=== PATIENT | female | born 1930 | race Caucasian/White ===

== ENCOUNTER → 2016-11-27 | Outpatient (CLI) | payer MEDICARE, OTHER ==
[~2016-11-27] MED LIST: AMOX-367 PO; CELE200C PO; CEPH-368 PO; FENT-58 SUBD; FENT1PAT77 TD; FLUC200T PO; FURO-92 PO; HYDR-3144 PO; HYDR1TAB12 PO; POTA20TA14 PO
== END | disposition home or self-care (01) ==
LOC: ROC 13:52
PROVIDERS: ATTEND Radiology Radiation Oncology
DX: C20 Malignant neoplasm of rectum (principal); C79.89 Secondary malignant neoplasm of other specified sites
CPT/HCPCS: G0463

== ENCOUNTER → 2017-02-19 | Outpatient (CLI) | payer MEDICARE | END | disposition home or self-care (01) | LOC: CVU 07:30 | PROVIDERS: ATTEND Internal Medicine Cardiovascular Disease | DX: S71.102D Unspecified open wound, left thigh, subsequent encounter (principal); I87.2 Venous insufficiency (chronic) (peripheral); X58.XXXD Exposure to other specified factors, subsequent encounter | CPT/HCPCS: 93970 ==

== ENCOUNTER → 2017-05-21 | Outpatient (CLI) | payer MEDICARE ==
[~2017-05-21] MED LIST changes: -HYDR-3144 PO; +HYDR-3245 PO
== END | disposition home or self-care (01) ==
LOC: ROC 11:01
PROVIDERS: ATTEND Radiology Radiation Oncology
DX: C76.3 Malignant neoplasm of pelvis (principal)
CPT/HCPCS: G0463

== ENCOUNTER → 2017-05-29 | Outpatient (CLI) | payer MEDICARE ==
[~2017-05-29] MED LIST changes: +GADOBUTROL 7.5 MMOL/7.5 ML PFS ONE
== END | disposition home or self-care (01) ==
LOC: CFH 09:09
PROVIDERS: ATTEND Radiology Radiation Oncology
DX: C79.51 Secondary malignant neoplasm of bone (principal); C20 Malignant neoplasm of rectum; I10 Essential (primary) hypertension; Z98.1 Arthrodesis status; Z98.890 Other specified postprocedural states
CPT/HCPCS: 72197; 82565; A9585

== ENCOUNTER → 2017-06-04 | Outpatient (CLI) | payer MEDICARE ==
[~2017-06-04] MED LIST changes: -GADOBUTROL 7.5 MMOL/7.5 ML PFS ONE
== END | disposition home or self-care (01) ==
LOC: ROC 09:25
PROVIDERS: ATTEND Radiology Radiation Oncology
DX: C76.3 Malignant neoplasm of pelvis (principal)
CPT/HCPCS: G0463

== ENCOUNTER → 2017-06-08 | Outpatient (CLI) | payer MEDICARE | END | disposition home or self-care (01) | LOC: WOUND 13:56 | PROVIDERS: ATTEND Internal Medicine Cardiovascular Disease | DX: I83.892 Varicose veins of left lower extremity with other complications (principal); I10 Essential (primary) hypertension | CPT/HCPCS: 36475 ==

== ENCOUNTER → 2017-06-11 | Outpatient (CLI) | payer MEDICARE | END | disposition home or self-care (01) | LOC: CVU 06:43 | PROVIDERS: ATTEND Internal Medicine Cardiovascular Disease | DX: I87.2 Venous insufficiency (chronic) (peripheral) (principal); Z98.890 Other specified postprocedural states | CPT/HCPCS: 93971 ==

== ENCOUNTER → 2017-11-16 | Outpatient (CLI) | payer MEDICARE | LOC: ROC 10:50 | PROVIDERS: ATTEND Radiology Radiation Oncology | DX: Z08 Encounter for follow-up examination after completed treatment for malignant neoplasm (principal); Z85.048 Personal history of other malignant neoplasm of rectum, rectosigmoid junction, and anus; Z98.890 Other specified postprocedural states | CPT/HCPCS: 99212; G0463 ==

== ENCOUNTER 2019-03-28 07:07 | Inpatient (IN) | payer MEDICARE ==
[~2019-03-28] VITALS: Ht 167.6 cm; Wt 73.5 kg
[2019-04-05 14:32] VITALS: BP 133/69
== END 2019-04-05 16:05 | DRG 480 ==
LOC: ED 09:03 → EDIP 09:37 → 4NOR 10:51 → 5SO 03-29 18:16 → 4NOR 04-02 15:51 → 4EST 04-04 16:15 → 4NOR 04-04 16:16
PROVIDERS: ADMIT Internal Medicine; ATTEND Internal Medicine
PROC: 0T9B70Z Drainage of Bladder with Drainage Device, Via Natural or Artificial Opening (ICD-10-PCS; 2019-03-28)
PROC: 0QH636Z Insertion of Intramedullary Internal Fixation Device into Right Upper Femur, Percutaneous Approach (ICD-10-PCS; principal; 2019-03-29)
DX: S72.142A Displaced intertrochanteric fracture of left femur, initial encounter for closed fracture (principal); N17.0 Acute kidney failure with tubular necrosis; F11.20 Opioid dependence, uncomplicated; D62 Acute posthemorrhagic anemia; K52.1 Toxic gastroenteritis and colitis; Z96.641 Presence of right artificial hip joint; S72.22XA Displaced subtrochanteric fracture of left femur, initial encounter for closed fracture; N30.90 Cystitis, unspecified without hematuria; I48.0 Paroxysmal atrial fibrillation; T50.8X5A Adverse effect of diagnostic agents, initial encounter; E87.6 Hypokalemia; I10 Essential (primary) hypertension; W01.0XXA Fall on same level from slipping, tripping and stumbling without subsequent striking against object, initial encounter; T36.95XA Adverse effect of unspecified systemic antibiotic, initial encounter; G89.29 Other chronic pain; B96.89 Other specified bacterial agents as the cause of diseases classified elsewhere; E04.2 Nontoxic multinodular goiter; Z85.038 Personal history of other malignant neoplasm of large intestine; Z87.440 Personal history of urinary (tract) infections; Y93.89 Activity, other specified; Y92.89 Other specified places as the place of occurrence of the external cause; Y99.8 Other external cause status; Z88.5 Allergy status to narcotic agent; Z88.8 Allergy status to other drugs, medicaments and biological substances
CPT/HCPCS: 36415; 71045; 71275; 72110; 76000; 80048; 80053; 81001; 82962; 83540; 83550; 83735; 84439; 84443; 84481; 84484; 85025; 85610; 85730; 86850; 86900; 87077; 87086; 87186; 87324; 93005; C1713; G0378; J0690; J0696; J1100; J1170; J1885; J2405; J2543; J2704; J3010; Q9967; J7030; J7040

== ENCOUNTER 2019-07-05 10:54 | Emergency (ER) | payer MEDICARE ==
[~2019-07-05] VITALS: Ht 167.6 cm; Wt 65.1 kg
[~2019-07-05 10:54] MED LIST changes: +ACET325T26 PO; +ACID1TAB7 PO; +ALEN10TA7 PO; +CALC1TAB68 PO; +CHOL400C11 PO; +FERR-51 PO; +HYDR-3241 PO; -HYDR1TAB12 PO; +HYDR1TAB13 PO; +LISI2.5T PO; +[UNRECOGNIZED DRUG - OTHER]
[2019-07-05] MEDS ORDERED: SODIUM CHLORIDE 0.9% 1,000 ML IV ONE (11:24)
[2019-07-05] MEDS ORDERED: VANCOMYCIN PER PHARMACY MC ONE (11:30)
[2019-07-05] MEDS ORDERED: PIPERACILLIN/TAZO/PMX 4.5GM 100 ML IVPB ONE (11:30)
[2019-07-05] MEDS ORDERED: SODIUM CHLORIDE 0.9% 1,000ML IVBOLUS ONE (11:30)
[2019-07-05] MEDS ORDERED: SODIUM CHLORIDE FLUSH 10ML SYR IVF ONE (11:30)
[2019-07-05 11:45] VITALS: BP 94/44
--- NOTE | 2019-07-05 11:46 | NUR ---
pt to ed for left lateral foot wound x2 and great toe infection (pt states healing) of unknown cause and unknown length of time. pt connected to monitors. tachy 110s, mild hypotension 90s/40s, all other vss. Dr. Martinez to bs for assessment. orders received. iv established and labs and 1 set bc drawn. xr complete. r and d lab technician to bs to compelte draw. awatiing results and meds from pharmacy.
[2019-07-05 12:00] LABS: BASOPHILS # (AUTO) 0.01 x10^3/uL (0-0.1); BASOPHILS % (AUTO) 0 % (0-1); EOSINOPHILS # (AUTO) 0.42 x10^3/uL (0-0.4); EOSINOPHILS % (AUTO) 5 % (1-7); LYMPHOCYTES # (AUTO) 0.47 x10^3/uL (1-3.4); LYMPHOCYTES % (AUTO) 5 % (22-44); MD NO; MEAN CORPUSCULAR HEMOGLOBIN 25.2 pg (27.0-34.8); MEAN CORPUSCULAR HGB CONC 31.2 g/dL (32.4-35.8); MEAN CORPUSCULAR VOLUME 80.7 fL (80-100); MEAN PLATELET VOLUME 8.1 fL (7.4-10.4); MONOCYTES % (AUTO) 4 % (2-9); NEUTROPHILS # (AUTO) 7.77 x10^3/uL (1.8-6.8); NEUTROPHILS % (AUTO) 86 % (42-75); PLATELET COUNT 422 x10^3/uL (130-400); RED BLOOD COUNT 4.22 x10^6/uL (3.82-5.3); RED CELL DISTRIBUTION WIDTH 19.8 % (9.6-15.2)
[2019-07-05] MEDS ORDERED: VANCOMYCIN 1,300 MG in SODIUM CHLORIDE 0.9% 250 ML IV ONE (12:00)
[2019-07-05 12:12] LABS: ALANINE AMINOTRANSFERASE 13 U/L (12-78); ALBUMIN 2.7 g/dL (3.4-5.0); ANION GAP 6 mmol/L (5-15); CALCIUM 8.6 mg/dL (8.5-10.1); CHLORIDE 111 mmol/L (98-107); CREATININE 1.13 mg/dL (0.55-1.02)
[2019-07-05 12:14] LABS: ALKALINE PHOSPHATASE 127 U/L (45-117); BILIRUBIN,TOTAL 0.3 mg/dL (0.2-1.0)
--- NOTE | 2019-07-05 12:19 | NUR ---
pt refusing abx, ivf and admit at this time. Dr. Martinez aware and will speak with patients.
--- NOTE | 2019-07-05 12:20 | NUR ---
Dr. Martinez to bs.
[2019-07-05 12:26] LABS: INTERNATIONAL NORMALIZED RATIO 0.95 (0.93-1.1)
--- NOTE | 2019-07-05 12:56 | NUR ---
after speaking with Dr. Martinez, pt will be dc. plan for wound care and wound consult. will hold all ivf and iv abx.
--- NOTE | 2019-07-05 13:14 | NUR ---
pt excorted to dc desk wtih all belongings. pt refused wheelchair.
== END 2019-07-05 13:16 | disposition home or self-care (01) ==
LOC: ED 12:18
DX: L89.523 Pressure ulcer of left ankle, stage 3 (principal); L89.623 Pressure ulcer of left heel, stage 3; L89.893 Pressure ulcer of other site, stage 3; L03.032 Cellulitis of left toe; M19.90 Unspecified osteoarthritis, unspecified site; Z90.710 Acquired absence of both cervix and uterus; Z85.038 Personal history of other malignant neoplasm of large intestine
CPT/HCPCS: 36415; 71045; 80053; 83605; 84145; 85025; 85610; 85730; 87040; 93005; 99284

== ENCOUNTER 2019-07-06 13:27 | Outpatient (CLI) | payer MEDICARE | END 2019-07-06 23:59 | disposition home or self-care (01) | LOC: WOUND 13:27 | PROVIDERS: ATTEND Internal Medicine | DX: L89.620 Pressure ulcer of left heel, unstageable (principal); L89.523 Pressure ulcer of left ankle, stage 3; L89.891 Pressure ulcer of other site, stage 1; S81.811A Laceration without foreign body, right lower leg, initial encounter; M86.072 Acute hematogenous osteomyelitis, left ankle and foot; M19.90 Unspecified osteoarthritis, unspecified site; Z87.891 Personal history of nicotine dependence; Z85.038 Personal history of other malignant neoplasm of large intestine; Z90.710 Acquired absence of both cervix and uterus; Y93.89 Activity, other specified; Y92.89 Other specified places as the place of occurrence of the external cause; Y99.8 Other external cause status; X58.XXXA Exposure to other specified factors, initial encounter | CPT/HCPCS: 11042; 97597; G0463 ==

== ENCOUNTER 2019-07-29 13:56 | Outpatient (CLI) | payer MEDICARE ==
[~2019-07-29 13:56] MED LIST changes: +FERR325T16 PO; +PIPE3.375 IV
== END 2019-07-29 23:59 | disposition home or self-care (01) ==
LOC: WOUND 13:56
PROVIDERS: ATTEND Family Medicine
DX: L89.524 Pressure ulcer of left ankle, stage 4 (principal); L89.624 Pressure ulcer of left heel, stage 4; L89.223 Pressure ulcer of left hip, stage 3; L89.891 Pressure ulcer of other site, stage 1; L89.159 Pressure ulcer of sacral region, unspecified stage; S81.811D Laceration without foreign body, right lower leg, subsequent encounter; M86.072 Acute hematogenous osteomyelitis, left ankle and foot; D63.1 Anemia in chronic kidney disease; I12.9 Hypertensive chronic kidney disease with stage 1 through stage 4 chronic kidney disease, or unspecified chronic kidney disease; N18.3 Chronic kidney disease, stage 3 (moderate); M86.8X6 Other osteomyelitis, lower leg; E46 Unspecified protein-calorie malnutrition; I25.2 Old myocardial infarction; G89.29 Other chronic pain; I48.0 Paroxysmal atrial fibrillation; M19.90 Unspecified osteoarthritis, unspecified site; F11.20 Opioid dependence, uncomplicated; Z88.5 Allergy status to narcotic agent; Z90.710 Acquired absence of both cervix and uterus; Z85.038 Personal history of other malignant neoplasm of large intestine; Z85.830 Personal history of malignant neoplasm of bone; Z90.49 Acquired absence of other specified parts of digestive tract; Z87.891 Personal history of nicotine dependence; Z79.899 Other long term (current) drug therapy; X58.XXXD Exposure to other specified factors, subsequent encounter
CPT/HCPCS: 11042; 97597

== ENCOUNTER 2019-08-05 13:18 | Outpatient (CLI) | payer MEDICARE | END 2019-08-05 23:59 | disposition home or self-care (01) | LOC: WOUND 13:18 | PROVIDERS: ATTEND Family Medicine | DX: L89.524 Pressure ulcer of left ankle, stage 4 (principal); L89.223 Pressure ulcer of left hip, stage 3; L89.624 Pressure ulcer of left heel, stage 4; L89.159 Pressure ulcer of sacral region, unspecified stage; M86.072 Acute hematogenous osteomyelitis, left ankle and foot; L89.891 Pressure ulcer of other site, stage 1; S81.811D Laceration without foreign body, right lower leg, subsequent encounter; D63.1 Anemia in chronic kidney disease; I12.9 Hypertensive chronic kidney disease with stage 1 through stage 4 chronic kidney disease, or unspecified chronic kidney disease; N18.3 Chronic kidney disease, stage 3 (moderate); M86.8X6 Other osteomyelitis, lower leg; E46 Unspecified protein-calorie malnutrition; I25.2 Old myocardial infarction; G89.29 Other chronic pain; I48.0 Paroxysmal atrial fibrillation; M19.90 Unspecified osteoarthritis, unspecified site; F11.20 Opioid dependence, uncomplicated; Z88.5 Allergy status to narcotic agent; Z90.710 Acquired absence of both cervix and uterus; Z85.038 Personal history of other malignant neoplasm of large intestine; Z85.830 Personal history of malignant neoplasm of bone; Z90.49 Acquired absence of other specified parts of digestive tract; Z87.891 Personal history of nicotine dependence; Z79.899 Other long term (current) drug therapy; X58.XXXD Exposure to other specified factors, subsequent encounter | CPT/HCPCS: 11042; 11043; 97597 ==

== ENCOUNTER 2019-08-18 11:30 | Inpatient (IN) | payer MEDICARE ==
[~2019-08-18] VITALS: Ht 162.6 cm; Wt 86.0 kg
--- NOTE | 2019-08-18 12:35 | NUR ---
PT HAS CO OF LEFT HEEL PAIN AND LEFT HIP PAIN. PT IS POOR HISTORIAN. PT STATES SHE HAD AN INFECTION, RECEIVED PICC LINE AND HAD IT REMOVED YESTERDAY. PT STATES HOME HEALTH IS UNABLE TO TAKE CARE OF HER, HELPS OUT AND LIVES WITH SON. PT SKIN IS EXTREMELY EXCORIATED IN WALTER AREA, UNDER SKIN FOLDS AND BREAST WITH FECES AND OLD UNDWEAR. PT HAS DIARRHEA, RECENT ABX USE. MD AT BEDSIDE ASSESSING PEDAL PULSES. LEFT PEDAL PULSE ABSENT W DOPPLER. RIGHT PEDAL PULSE PRESENT. LEFT HEAL HAS LARGE ULCER WITH OLD DRESSING REMOVED. VS STABLE. DENIES PAIN.
[2019-08-18 12:54] LABS: BASOPHILS % (AUTO) 0 % (0-1); EOSINOPHILS % (AUTO) 1 % (1-7); LYMPHOCYTES % (AUTO) 7 % (22-44); MD NO; MEAN CORPUSCULAR HEMOGLOBIN 23.7 pg (27.0-34.8); MEAN CORPUSCULAR HGB CONC 31.5 g/dL (32.4-35.8); MEAN CORPUSCULAR VOLUME 75.4 fL (80-100); MEAN PLATELET VOLUME 8.8 fL (7.4-10.4); MONOCYTES # (AUTO) 0.15 x10^3/uL (0.2-0.8); MONOCYTES % (AUTO) 2 % (2-9); NEUTROPHILS # (AUTO) 6.45 x10^3/uL (1.8-6.8); NEUTROPHILS % (AUTO) 90 % (42-75); PLATELET COUNT 206 x10^3/uL (130-400); RED BLOOD COUNT 3.21 x10^6/uL (3.82-5.3); RED CELL DISTRIBUTION WIDTH 20.3 % (9.6-15.2)
[2019-08-18 12:57] LABS: ALBUMIN 1.9 g/dL (3.4-5.0); ANION GAP 11 mmol/L (5-15); CALCIUM 8.1 mg/dL (8.5-10.1); CHLORIDE 115 mmol/L (98-107)
[2019-08-18 13:00] LABS: ALANINE AMINOTRANSFERASE 18 U/L (12-78); ALKALINE PHOSPHATASE 106 U/L (45-117); BILIRUBIN,TOTAL 0.2 mg/dL (0.2-1.0); CREATININE 1.19 mg/dL (0.55-1.02); TOTAL PROTEIN 5.4 g/dL (6.4-8.2)
--- NOTE | 2019-08-18 13:41 | NUR ---
UA AND STOOL SAMPLE COLLECTED. PT CLEANED. PT HAS SKIN TEARS FROM EXCORIATON ON BUTTOCK. ENTIRE WALTER AREA IS MACERATED, PT INCONTINENT OF BOWEL.
[2019-08-18 13:55] LABS: CULTURE INDICATED? NO; MICROSCOPIC NOT IND
--- NOTE | 2019-08-18 14:13 | NUR ---
BREAK RN: PT RESTING IN BED, EYES OPEN, NAD NOTED. PT DENIES ANY NEEDS OR CONCERNS AT THIS TIME. VITALS UPDATED, CALL LIGHT IN REACH.
[2019-08-18 15:00] LABS: CLOSTRIDIUM DIFFICILE ANTIGEN NEGATIVE; CLOSTRIDIUM DIFFICILE TOXIN NEGATIVE (Negative)
--- NOTE | 2019-08-18 15:20 | NUR ---
PT CLEANED UP, NYSTATIN POWDER APPLIED. INCONTINENT OF STOOL
[2019-08-18] MEDS ORDERED: POTASSIUM CHLORIDE 20 MEQ in LACTATED RINGERS 1,000 ML IV ONE (16:10)
--- NOTE | 2019-08-18 16:20 | NUR ---
DISCUSSED DALLIN Montana MD FOR ADMIT
--- NOTE | 2019-08-18 16:21 | NUR ---
PT TURNED AND CLEANED UP. CALAZIME CREAM APPLIED.
--- NOTE | 2019-08-18 17:34 | NUR ---
[facility] at bedside
[2019-08-18] MEDS ORDERED: PIPERACILLIN/TAZO/PMX 3.375GM 50 ML ONE (17:40)
--- NOTE | 2019-08-18 17:51 | NUR ---
MEDICATED FOR PAIN. ABX INFUSING
[2019-08-18] MEDS ORDERED: PIPERACILLIN/TAZO/PMX 3.375GM 50 ML IV SCH (18:00)
[2019-08-18] MEDS ORDERED: hydrALAzine 20 MG/ML, 1ML IVPush PRN (18:00)
[2019-08-18] MEDS ORDERED: ACETAMINOPHEN 325 MG TABLET PO PRN (18:00)
[2019-08-18 19:44] VITALS: BP 151/69
[2019-08-18 20:00] VITALS: BP 145/75
[2019-08-18] MEDS ORDERED: NYSTATIN TOPICAL POWDER 15GM TP SCH (21:00)
[2019-08-18] MEDS: LACTOBACILLUS CHEW TABLET PO SCH ×2 (21:00→21:06)
[2019-08-18] MEDS: HEPARIN 5,000 UNITS/ML, 1ML SQ SCH (21:06)
[2019-08-18] MEDS: SODIUM CHLORIDE 0.9% 1,000 ML IV SCH (21:07)
[2019-08-18] MEDS: FERROUS GLUCONATE 324 MG TABLET PO SCH (21:08)
[2019-08-19] VITALS (7 sets, daily range): BP systolic 89–156; BP diastolic 61–83
[2019-08-19] MEDS: PIPERACILLIN/TAZO/PMX 2.25GM 50 ML IVPB SCH ×4 (00:09→21:58)
[2019-08-19] MEDS: HEPARIN 5,000 UNITS/ML, 1ML SQ SCH ×4 (02:00→18:00)
[2019-08-19] MEDS: HYDROcodone/APAP 5/325 TABLET PO PRN ×2 (02:04→23:57)
[2019-08-19 04:52] LABS: ALANINE AMINOTRANSFERASE 17 U/L (12-78); ALBUMIN 1.6 g/dL (3.4-5.0); ANION GAP 10 mmol/L (5-15); CALCIUM 7.3 mg/dL (8.5-10.1); CHLORIDE 116 mmol/L (98-107); CREATININE 1.04 mg/dL (0.55-1.02)
[2019-08-19 04:54] LABS: ALKALINE PHOSPHATASE 92 U/L (45-117); BILIRUBIN,TOTAL 0.2 mg/dL (0.2-1.0); TOTAL PROTEIN 4.7 g/dL (6.4-8.2)
[2019-08-19 05:00] LABS: MEAN CORPUSCULAR HEMOGLOBIN 23.3 pg (27.0-34.8); MEAN CORPUSCULAR VOLUME 75.2 fL (80-100); MEAN PLATELET VOLUME 8.8 fL (7.4-10.4); PLATELET COUNT 167 x10^3/uL (130-400); RED BLOOD COUNT 2.86 x10^6/uL (3.82-5.3); RED CELL DISTRIBUTION WIDTH 20.3 % (9.6-15.2)
[2019-08-19 05:08] LABS: MD YES
[2019-08-19 05:11] LABS: ANISOCYTOSIS 1+; BAND#(MANUAL) 0.11 x10^3/uL; BANDS%(MANUAL) 2 % (0-7); EOS#(MANUAL) 0.42 x10^3/uL (0.0-0.4); EOS% (MANUAL) 8 % (1-7); HYPOCHROMIA 1+; LYMPH#(MANUAL) 0.32 x10^3/uL (1-3.4); LYMPHS% (MANUAL) 6 % (22-44); METAMYELOCYTES# (MANUAL) 0.05 x10^3/uL (0-0); METAMYELOCYTES% (MANUAL) 1 % (0-1); MICROCYTOSIS 1+; MONOS#(MANUAL) 0.05 x10^3/uL (0.3-2.7); MONOS% (MANUAL) 1 % (2-9); OVALOCYTES 1+; POLYCHROMASIA 1+; SEG#(MANUAL) 4.35 x10^3/uL (1.8-6.8); SEGS% (MANUAL) 82 % (42-75)
[2019-08-19 05:12] LABS: <PLATELET ESTIMATE> ADEQUATE
[2019-08-19 05:13] LABS: LARGE PLATELETS 1+
[2019-08-19] MEDS ORDERED: POTASSIUM CHLORIDE 20 MEQ TAB.ER.PRT PO ONE ×2 (07:00→16:00)
[2019-08-19] MEDS ORDERED: MAGNESIUM SULFATE PMX 2GM/50ML 50 ML IV ONE (07:00)
[2019-08-19] MEDS: SODIUM CHLORIDE 0.9% 1,000 ML IV SCH (08:53)
[2019-08-19] MEDS: FERROUS GLUCONATE 324 MG TABLET PO SCH ×2 (08:53→17:15)
[2019-08-19] MEDS: LACTOBACILLUS CHEW TABLET PO SCH ×3 (08:53→20:23)
[2019-08-19] MEDS ORDERED: LISINOPRIL 20 MG PO SCH (09:00)
[2019-08-19] MEDS ORDERED: DIPHENOXYLATE/ATROPINE TABLET PO PRN (11:30)
[2019-08-19] MEDS: POTASSIUM CHLORIDE 20 MEQ in SODIUM CHLORIDE 0.45% 1,000 ML IV SCH (13:08)
[2019-08-19] MEDS: FLUCONAZOLE 100MG/50ML 100 MG in BAG 1 EACH IV SCH (14:56)
[2019-08-19] MEDS: ONDANSETRON 2MG/ML, 2ML IVPush PRN (21:58)
[2019-08-20] MEDS ORDERED: METOCLOPRAMIDE 5 MG/ML, 2ML IVPush ONE (00:30)
[2019-08-20 01:19] VITALS: BP 145/65
[2019-08-20] MEDS: HEPARIN 5,000 UNITS/ML, 1ML SQ SCH ×6 (01:54→22:06)
[2019-08-20] MEDS: ONDANSETRON 2MG/ML, 2ML IVPush PRN (03:54)
[2019-08-20 03:57] VITALS: BP 147/82
[2019-08-20] MEDS: PIPERACILLIN/TAZO/PMX 2.25GM 50 ML IVPB SCH ×4 (04:12→22:03)
[2019-08-20 05:34] LABS: HCT (SEDRATE) 29.2 % (34.6-47.8)
[2019-08-20 05:38] LABS: ANION GAP 9 mmol/L (5-15); CALCIUM 7.9 mg/dL (8.5-10.1); CHLORIDE 115 mmol/L (98-107); CREATININE 0.99 mg/dL (0.55-1.02)
[2019-08-20 05:41] LABS: MEAN CORPUSCULAR HEMOGLOBIN 24.5 pg (27.0-34.8); MEAN CORPUSCULAR HGB CONC 31.5 g/dL (32.4-35.8); MEAN CORPUSCULAR VOLUME 77.7 fL (80-100); MEAN PLATELET VOLUME 8.9 fL (7.4-10.4); PLATELET COUNT 248 x10^3/uL (130-400); RED BLOOD COUNT 3.82 x10^6/uL (3.82-5.3); RED CELL DISTRIBUTION WIDTH 22.1 % (9.6-15.2)
[2019-08-20 06:20] LABS: MD YES
[2019-08-20 06:23] LABS: ANISOCYTOSIS 1+; BAND#(MANUAL) 0.47 x10^3/uL; BANDS%(MANUAL) 5 % (0-7); HYPOCHROMIA 1+; LYMPH#(MANUAL) 0.37 x10^3/uL (1-3.4); LYMPHS% (MANUAL) 4 % (22-44); MICROCYTOSIS 1+; MONOS#(MANUAL) 0.19 x10^3/uL (0.3-2.7); MONOS% (MANUAL) 2 % (2-9); OVALOCYTES 1+; POLYCHROMASIA 1+; SEG#(MANUAL) 8.28 x10^3/uL (1.8-6.8); SEGS% (MANUAL) 89 % (42-75)
[2019-08-20 06:24] LABS: <PLATELET ESTIMATE> ADEQUATE; <PLT MORPHOLOGY> NORMAL PLT MORPH; TEAR DROPS 1+
[2019-08-20] MEDS ORDERED: POTASSIUM CHLORIDE 20 MEQ TAB.ER.PRT PO ONE (07:00)
[2019-08-20 07:50] VITALS: BP 179/78
[2019-08-20] MEDS: FERROUS GLUCONATE 324 MG TABLET PO SCH ×2 (08:00→17:00)
[2019-08-20] MEDS: LACTOBACILLUS CHEW TABLET PO SCH ×3 (08:06→20:59)
[2019-08-20] MEDS: POTASSIUM CHLORIDE 20 MEQ in SODIUM CHLORIDE 0.45% 1,000 ML IV SCH (08:12)
[2019-08-20] MEDS ORDERED: HYDROmorphone 1 MG/ML, 1ML INJ IV PRN (08:30)
[2019-08-20] MEDS ORDERED: PROMETHAZINE 25 MG/ML, 1ML IM PRN (08:30)
[2019-08-20] MEDS ORDERED: HYDROmorphone 2 MG/ML, 1ML IV PRN (09:00)
[2019-08-20] MEDS ORDERED: cloniDINE 0.1MG PATCH TD SCH (11:30)
[2019-08-20] MEDS ORDERED: LORazepam 2 MG/ML, 1ML IVPush PRN (11:30)
[2019-08-20 12:25] VITALS: BP 135/68
[2019-08-20] MEDS: FLUCONAZOLE 100MG/50ML 100 MG in BAG 1 EACH IV SCH (16:25)
[2019-08-20] MEDS: PANTOPRAZOLE 40 MG IV IVPush SCH (17:07)
[2019-08-20 18:47] VITALS: BP 151/72
[2019-08-21] VITALS: BP 168/74
[2019-08-21] MEDS: POTASSIUM CHLORIDE 20 MEQ in SODIUM CHLORIDE 0.45% 1,000 ML IV SCH ×2 (03:25→22:00)
[2019-08-21] MEDS: PIPERACILLIN/TAZO/PMX 2.25GM 50 ML IVPB SCH ×4 (03:25→22:00)
[2019-08-21 04:57] LABS: BASOPHILS % (AUTO) 0 % (0-1); EOSINOPHILS # (AUTO) 0.05 x10^3/uL (0-0.4); EOSINOPHILS % (AUTO) 1 % (1-7); LYMPHOCYTES # (AUTO) 0.32 x10^3/uL (1-3.4); LYMPHOCYTES % (AUTO) 4 % (22-44); MD NO; MEAN CORPUSCULAR HEMOGLOBIN 23.8 pg (27.0-34.8); MEAN CORPUSCULAR HGB CONC 31.2 g/dL (32.4-35.8); MEAN CORPUSCULAR VOLUME 76.4 fL (80-100); MEAN PLATELET VOLUME 8.4 fL (7.4-10.4); MONOCYTES # (AUTO) 0.42 x10^3/uL (0.2-0.8); MONOCYTES % (AUTO) 5 % (2-9); NEUTROPHILS # (AUTO) 7.37 x10^3/uL (1.8-6.8); NEUTROPHILS % (AUTO) 90 % (42-75); PLATELET COUNT 202 x10^3/uL (130-400); RED BLOOD COUNT 3.53 x10^6/uL (3.82-5.3)
[2019-08-21 05:00] LABS: ANION GAP 8 mmol/L (5-15); CALCIUM 7.6 mg/dL (8.5-10.1); CHLORIDE 116 mmol/L (98-107)
[2019-08-21 06:51] VITALS: BP 160/81
[2019-08-21] MEDS: FERROUS GLUCONATE 324 MG TABLET PO SCH ×2 (08:00→16:21)
[2019-08-21] MEDS: LACTOBACILLUS CHEW TABLET PO SCH ×3 (08:04→21:00)
[2019-08-21] MEDS: HEPARIN 5,000 UNITS/ML, 1ML SQ SCH ×3 (10:19→23:27)
[2019-08-21] MEDS: PANTOPRAZOLE 40 MG IV IVPush SCH ×2 (10:19→21:21)
[2019-08-21] MEDS ORDERED: POTASSIUM CHLORIDE 20 MEQ in SODIUM CHLORIDE 0.45% 1,000 ML IV SCH (11:30)
[2019-08-21] MEDS: POTASSIUM CHLORIDE 40 MEQ in SODIUM CHLORIDE 0.9% 500 ML IV SCH ×2 (11:50→16:20)
[2019-08-21 13:30] VITALS: BP 155/69
[2019-08-21] MEDS: FLUCONAZOLE 100MG/50ML 100 MG in BAG 1 EACH IV SCH (15:31)
[2019-08-21 20:00] VITALS: BP 156/69
[2019-08-22 01:45] VITALS: BP 164/74
[2019-08-22] MEDS: PIPERACILLIN/TAZO/PMX 2.25GM 50 ML IVPB SCH ×4 (04:17→21:41)
[2019-08-22 05:18] LABS: MEAN CORPUSCULAR HEMOGLOBIN 24.8 pg (27.0-34.8); MEAN CORPUSCULAR HGB CONC 31.5 g/dL (32.4-35.8); MEAN CORPUSCULAR VOLUME 78.7 fL (80-100); MEAN PLATELET VOLUME 8.5 fL (7.4-10.4); PLATELET COUNT 213 x10^3/uL (130-400); RED BLOOD COUNT 3.35 x10^6/uL (3.82-5.3); RED CELL DISTRIBUTION WIDTH 23.2 % (9.6-15.2)
[2019-08-22 05:25] LABS: ALBUMIN 1.7 g/dL (3.4-5.0); ANION GAP 11 mmol/L (5-15); CALCIUM 7.7 mg/dL (8.5-10.1); CHLORIDE 115 mmol/L (98-107)
[2019-08-22 05:29] LABS: ALANINE AMINOTRANSFERASE 13 U/L (12-78); ALKALINE PHOSPHATASE 109 U/L (45-117); BILIRUBIN,TOTAL 0.4 mg/dL (0.2-1.0); CREATININE 0.82 mg/dL (0.55-1.02); TOTAL PROTEIN 5.2 g/dL (6.4-8.2)
[2019-08-22 06:03] LABS: BASOPHILS % (AUTO) 0 % (0-1); EOSINOPHILS # (AUTO) 0.23 x10^3/uL (0-0.4); EOSINOPHILS % (AUTO) 3 % (1-7); LYMPHOCYTES # (AUTO) 0.43 x10^3/uL (1-3.4); LYMPHOCYTES % (AUTO) 5 % (22-44); MD SCAN; MONOCYTES % (AUTO) 7 % (2-9); NEUTROPHILS # (AUTO) 7.41 x10^3/uL (1.8-6.8); NEUTROPHILS % (AUTO) 86 % (42-75)
[2019-08-22 07:08] VITALS: BP 177/72
[2019-08-22] MEDS: HEPARIN 5,000 UNITS/ML, 1ML SQ SCH ×3 (08:00→23:52)
[2019-08-22] MEDS: FERROUS GLUCONATE 324 MG TABLET PO SCH ×2 (10:19→16:21)
[2019-08-22] MEDS: PANTOPRAZOLE 40 MG IV IVPush SCH ×2 (10:19→21:41)
[2019-08-22] MEDS: LACTOBACILLUS CHEW TABLET PO SCH ×3 (10:19→21:32)
[2019-08-22 13:40] VITALS: BP 162/75
[2019-08-22] MEDS: FLUCONAZOLE 100MG/50ML 100 MG in BAG 1 EACH IV SCH (16:20)
[2019-08-22] MEDS: POTASSIUM CHLORIDE 20 MEQ in SODIUM CHLORIDE 0.45% 1,000 ML IV SCH (16:51)
[2019-08-22 18:28] VITALS: BP 157/79
[2019-08-22] MEDS ORDERED: MAGNESIUM SULFATE 1 GM in SODIUM CHLORIDE 0.9% 50 ML IV ONE (19:00)
[2019-08-22] MEDS ORDERED: POTASSIUM PHOSPHATE 44 MEQ in SODIUM CHLORIDE 0.9% 500 ML IV ONE (19:00)
[2019-08-23 00:54] VITALS: BP 163/73
[2019-08-23] MEDS: PIPERACILLIN/TAZO/PMX 2.25GM 50 ML IVPB SCH ×3 (04:08→21:35)
[2019-08-23 05:33] LABS: MEAN CORPUSCULAR HGB CONC 31.1 g/dL (32.4-35.8); MEAN CORPUSCULAR VOLUME 77.2 fL (80-100); MEAN PLATELET VOLUME 8.4 fL (7.4-10.4); PLATELET COUNT 234 x10^3/uL (130-400); RED BLOOD COUNT 3.56 x10^6/uL (3.82-5.3); RED CELL DISTRIBUTION WIDTH 22.8 % (9.6-15.2)
[2019-08-23 05:41] LABS: ANION GAP 13 mmol/L (5-15); CALCIUM 7.9 mg/dL (8.5-10.1); CHLORIDE 112 mmol/L (98-107)
[2019-08-23 05:42] LABS: CREATININE 0.69 mg/dL (0.55-1.02)
[2019-08-23 06:12] LABS: BASOPHILS # (AUTO) 0.03 x10^3/uL (0-0.1); BASOPHILS % (AUTO) 0 % (0-1); EOSINOPHILS # (AUTO) 0.18 x10^3/uL (0-0.4); EOSINOPHILS % (AUTO) 2 % (1-7); LYMPHOCYTES # (AUTO) 0.54 x10^3/uL (1-3.4); LYMPHOCYTES % (AUTO) 7 % (22-44); MD SCAN; MONOCYTES % (AUTO) 10 % (2-9); NEUTROPHILS # (AUTO) 6.54 x10^3/uL (1.8-6.8); NEUTROPHILS % (AUTO) 81 % (42-75)
[2019-08-23] MEDS: POTASSIUM CHLORIDE 20 MEQ in SODIUM CHLORIDE 0.45% 1,000 ML IV SCH (07:00)
[2019-08-23] MEDS: HEPARIN 5,000 UNITS/ML, 1ML SQ SCH ×2 (08:00→16:00)
[2019-08-23] MEDS ORDERED: ONDANSETRON 2MG/ML, 2ML IV PRN (09:00)
[2019-08-23] MEDS ORDERED: FENTANYL PF 100 MCG/2ML IV PRN (09:00)
[2019-08-23] MEDS ORDERED: METOPROLOL 1 MG/ML, 5ML IV PRN (09:00)
[2019-08-23 09:04] VITALS: BP 99/58
[2019-08-23] MEDS ORDERED: PROPOFOL 10 MG/ML, 50ML ONE (09:18)
[2019-08-23 11:00] VITALS: BP 160/82
[2019-08-23 11:15] VITALS: BP 170/79
[2019-08-23 12:51] VITALS: BP 159/76
[2019-08-23] MEDS: PANTOPRAZOLE 40 MG IV IVPush SCH ×2 (15:37→21:35)
[2019-08-23] MEDS: LACTOBACILLUS CHEW TABLET PO SCH ×3 (15:38→21:36)
[2019-08-23] MEDS: FERROUS GLUCONATE 324 MG TABLET PO SCH ×2 (15:38→17:00)
[2019-08-23] MEDS: FLUCONAZOLE 100MG/50ML 100 MG in BAG 1 EACH IV SCH (16:36)
[2019-08-23 18:37] VITALS: BP 143/67
[2019-08-23] MEDS ORDERED: FLUCONAZOLE 200 MG/100 ML 100 ML IV SCH (22:30)
[2019-08-23] MEDS: SODIUM CHLORIDE 0.9% 1,000 ML IV SCH (22:42)
[2019-08-24 00:42] VITALS: BP 159/83
[2019-08-24] MEDS: PIPERACILLIN/TAZO/PMX 2.25GM 50 ML IVPB SCH ×4 (03:30→22:44)
[2019-08-24] MEDS: FLUCONAZOLE 200 MG/100 ML 100 ML IV SCH (04:00)
[2019-08-24 05:10] LABS: ALBUMIN 1.7 g/dL (3.4-5.0); ANION GAP 7 mmol/L (5-15); CALCIUM 7.4 mg/dL (8.5-10.1); CHLORIDE 112 mmol/L (98-107)
[2019-08-24 05:11] LABS: MD YES; MEAN CORPUSCULAR HEMOGLOBIN 24.1 pg (27.0-34.8); MEAN CORPUSCULAR VOLUME 77.8 fL (80-100); MEAN PLATELET VOLUME 8.6 fL (7.4-10.4); PLATELET COUNT 238 x10^3/uL (130-400); RED BLOOD COUNT 3.25 x10^6/uL (3.82-5.3); RED CELL DISTRIBUTION WIDTH 22.7 % (9.6-15.2)
[2019-08-24 05:13] LABS: CREATININE 0.71 mg/dL (0.55-1.02)
[2019-08-24 05:14] LABS: ALANINE AMINOTRANSFERASE 16 U/L (12-78); ALKALINE PHOSPHATASE 107 U/L (45-117); BILIRUBIN,TOTAL 0.3 mg/dL (0.2-1.0); TOTAL PROTEIN 4.9 g/dL (6.4-8.2)
[2019-08-24 06:00] LABS: BAND#(MANUAL) 0.09 x10^3/uL; BANDS%(MANUAL) 1 % (0-7); EOS#(MANUAL) 0.34 x10^3/uL (0.0-0.4); EOS% (MANUAL) 4 % (1-7); LYMPH#(MANUAL) 0.34 x10^3/uL (1-3.4); LYMPHS% (MANUAL) 4 % (22-44); MONOS#(MANUAL) 0.34 x10^3/uL (0.3-2.7); MONOS% (MANUAL) 4 % (2-9); MYELOCYTES# (MANUAL) 0.17 x10^3/uL (0-0); MYELOCYTES% (MANUAL) 2 % (0-0); SEG#(MANUAL) 7.23 x10^3/uL (1.8-6.8); SEGS% (MANUAL) 85 % (42-75)
[2019-08-24 06:01] LABS: <PLATELET ESTIMATE> ADEQUATE; <PLT MORPHOLOGY> NORMAL PLT MORPH; ANISOCYTOSIS 1+; MICROCYTOSIS 1+
[2019-08-24 07:24] VITALS: BP 166/76
[2019-08-24] MEDS: HEPARIN 5,000 UNITS/ML, 1ML SQ SCH ×4 (08:00→22:15)
[2019-08-24] MEDS: PANTOPRAZOLE 40 MG IV IVPush SCH ×2 (09:25→21:18)
[2019-08-24] MEDS: FERROUS GLUCONATE 324 MG TABLET PO SCH ×2 (09:25→16:44)
[2019-08-24] MEDS: LACTOBACILLUS CHEW TABLET PO SCH ×3 (09:25→21:18)
[2019-08-24] MEDS: SODIUM CHLORIDE 0.9% 1,000 ML IV SCH (09:25)
[2019-08-24 13:15] VITALS: BP 173/68
[2019-08-24 16:49] VITALS: BP 149/80
[2019-08-24 19:04] VITALS: BP 147/72
[2019-08-24] MEDS ORDERED: MAGNESIUM SULFATE PMX 2GM/50ML 50 ML IV ONE (21:30)
[2019-08-24] MEDS ORDERED: POTASSIUM PHOSPHATE 44 MEQ in SODIUM CHLORIDE 0.9% 500 ML IV ONE (21:30)
[2019-08-25] MEDS: SODIUM CHLORIDE 0.9% 1,000 ML IV SCH ×2 (01:43→15:10)
[2019-08-25 01:57] VITALS: BP 131/63
[2019-08-25] MEDS: PIPERACILLIN/TAZO/PMX 2.25GM 50 ML IVPB SCH ×4 (05:00→23:16)
[2019-08-25] MEDS: FLUCONAZOLE 200 MG/100 ML 100 ML IV SCH (05:41)
[2019-08-25 06:33] LABS: MEAN CORPUSCULAR HGB CONC 31.3 g/dL (32.4-35.8); MEAN CORPUSCULAR VOLUME 76.8 fL (80-100); MEAN PLATELET VOLUME 8.6 fL (7.4-10.4); PLATELET COUNT 269 x10^3/uL (130-400); RED BLOOD COUNT 3.31 x10^6/uL (3.82-5.3); RED CELL DISTRIBUTION WIDTH 22.9 % (9.6-15.2)
[2019-08-25 06:42] VITALS: BP 152/78
[2019-08-25 06:45] LABS: ALBUMIN 1.5 g/dL (3.4-5.0); ANION GAP 6 mmol/L (5-15); CALCIUM 7.5 mg/dL (8.5-10.1); CHLORIDE 113 mmol/L (98-107)
[2019-08-25 06:50] LABS: ALANINE AMINOTRANSFERASE 18 U/L (12-78); ALKALINE PHOSPHATASE 103 U/L (45-117); BILIRUBIN,TOTAL 0.4 mg/dL (0.2-1.0); CREATININE 0.72 mg/dL (0.55-1.02)
[2019-08-25 07:02] LABS: BASOPHILS % (AUTO) 0 % (0-1); EOSINOPHILS # (AUTO) 0.17 x10^3/uL (0-0.4); EOSINOPHILS % (AUTO) 2 % (1-7); LYMPHOCYTES # (AUTO) 0.52 x10^3/uL (1-3.4); LYMPHOCYTES % (AUTO) 6 % (22-44); MD MORPH REVIEW ONLY; MONOCYTES # (AUTO) 0.83 x10^3/uL (0.2-0.8); MONOCYTES % (AUTO) 9 % (2-9); NEUTROPHILS # (AUTO) 7.86 x10^3/uL (1.8-6.8); NEUTROPHILS % (AUTO) 84 % (42-75)
[2019-08-25 07:31] LABS: ANISOCYTOSIS 1+; HYPOCHROMIA 1+; MICROCYTOSIS 1+; OVALOCYTES 1+; POLYCHROMASIA 1+; TARGET CELLS 1+
[2019-08-25 07:32] LABS: <PLATELET ESTIMATE> ADEQUATE; <PLT MORPHOLOGY> NORMAL PLT MORPH
[2019-08-25] MEDS: HEPARIN 5,000 UNITS/ML, 1ML SQ SCH ×2 (08:00→16:00)
[2019-08-25] MEDS: PANTOPRAZOLE 40 MG IV IVPush SCH (10:03)
[2019-08-25] MEDS: FERROUS GLUCONATE 324 MG TABLET PO SCH ×2 (10:04→16:36)
[2019-08-25] MEDS: LACTOBACILLUS CHEW TABLET PO SCH ×3 (10:04→21:59)
[2019-08-25] MEDS ORDERED: IBUPROFEN 200 MG TABLET PO PRN (11:30)
[2019-08-25 13:23] VITALS: BP 142/73
[2019-08-25 18:38] VITALS: BP 133/75
[2019-08-25] MEDS: PANTOPROZOLE 40MG TABLET PO SCH (21:59)
[2019-08-26 00:45] VITALS: BP 160/68
[2019-08-26] MEDS: SODIUM CHLORIDE 0.9% 1,000 ML IV SCH ×2 (02:23→12:43)
[2019-08-26] MEDS: FLUCONAZOLE 200 MG/100 ML 100 ML IV SCH (04:41)
[2019-08-26] MEDS: PANTOPROZOLE 40MG TABLET PO SCH ×2 (06:00→17:20)
[2019-08-26 06:40] VITALS: BP 169/78
[2019-08-26 08:40] VITALS: BP 142/77
[2019-08-26] MEDS ORDERED: SULFAMETH./TRIMETHOPRIM DS 800MG/160MG TABLET PO SCH (09:00)
[2019-08-26] MEDS ORDERED: FLUCONAZOLE 200 MG TABLET PO SCH (09:00)
[2019-08-26] MEDS: LACTOBACILLUS CHEW TABLET PO SCH ×2 (10:16→17:20)
[2019-08-26] MEDS: FERROUS GLUCONATE 324 MG TABLET PO SCH ×2 (10:16→17:20)
[2019-08-26] MEDS: HEPARIN 5,000 UNITS/ML, 1ML SQ SCH ×3 (10:17→17:16)
[2019-08-26] MEDS ORDERED: PANT40TA5 PO (12:02)
[2019-08-26] MEDS ORDERED: Sulfameth./Trimethoprim Ds PO (12:02)
[2019-08-26] MEDS ORDERED: FLUC200T PO (12:02)
[2019-08-26] MEDS ORDERED: TRAM50TA2 PO (12:32)
[2019-08-26 13:32] VITALS: BP 156/83
== END 2019-08-26 19:00 | DRG 393 ==
LOC: ED 13:49 → EDIP 16:10 → 4NW 18:35
PROVIDERS: ADMIT Internal Medicine; ATTEND Internal Medicine
PROC: 0T9B70Z Drainage of Bladder with Drainage Device, Via Natural or Artificial Opening (ICD-10-PCS; 2019-08-18)
PROC: 0D9P70Z Drainage of Rectum with Drainage Device, Via Natural or Artificial Opening (ICD-10-PCS; 2019-08-18)
PROC: 30233N1 Transfusion of Nonautologous Red Blood Cells into Peripheral Vein, Percutaneous Approach (ICD-10-PCS; principal; 2019-08-19)
PROC: 0D9670Z Drainage of Stomach with Drainage Device, Via Natural or Artificial Opening (ICD-10-PCS; 2019-08-20)
PROC: 0D7P8ZZ Dilation of Rectum, Via Natural or Artificial Opening Endoscopic (ICD-10-PCS; 2019-08-23)
DX: K91.858 Other complications of intestinal pouch (principal); L89.323 Pressure ulcer of left buttock, stage 3; E43 Unspecified severe protein-calorie malnutrition; M86.8X6 Other osteomyelitis, lower leg; E87.2 Acidosis; K62.6 Ulcer of anus and rectum; F11.20 Opioid dependence, uncomplicated; L03.116 Cellulitis of left lower limb; K62.4 Stenosis of anus and rectum; N18.3 Chronic kidney disease, stage 3 (moderate); L97.529 Non-pressure chronic ulcer of other part of left foot with unspecified severity; B37.2 Candidiasis of skin and nail; D50.9 Iron deficiency anemia, unspecified; L89.229 Pressure ulcer of left hip, unspecified stage; I13.10 Hypertensive heart and chronic kidney disease without heart failure, with stage 1 through stage 4 chronic kidney disease, or unspecified chronic kidney disease; Z66 Do not resuscitate; R62.7 Adult failure to thrive; B95.2 Enterococcus as the cause of diseases classified elsewhere; L30.4 Erythema intertrigo; Z90.49 Acquired absence of other specified parts of digestive tract; Z90.710 Acquired absence of both cervix and uterus; Z87.440 Personal history of urinary (tract) infections; Z88.5 Allergy status to narcotic agent; Z82.49 Family history of ischemic heart disease and other diseases of the circulatory system; Z87.891 Personal history of nicotine dependence; Z87.19 Personal history of other diseases of the digestive system; Z68.32 Body mass index [BMI] 32.0-32.9, adult; Z79.899 Other long term (current) drug therapy; R15.9 Full incontinence of feces; Y83.2 Surgical operation with anastomosis, bypass or graft as the cause of abnormal reaction of the patient, or of later complication, without mention of misadventure at the time of the procedure; Y92.9 Unspecified place or not applicable
CPT/HCPCS: 36415; 72190; 74018; 74022; 74176; 80048; 80053; 81003; 83690; 83735; 84100; 84132; 85014; 85018; 85025; 85651; 86850; 86900; 86923; 87046; 87070; 87077; 87106; 87186; 87205; 87324; 87427; 93970; G0378; J1170; J1644; J2405; J2543; J2550; J2704; J3475; J3480; C1725; C9113; J0360; J1450; J2060; J2765; J7030; J7040; P9016

== ENCOUNTER 2019-09-20 16:49 | Inpatient (IN) | payer MEDICARE ==
[~2019-09-20] VITALS: Ht 162.6 cm; Wt 74.2 kg
[~2019-09-20 16:49] MED LIST changes: +ALEN10TA10 PO; -ALEN10TA7 PO; +PANT40TA5 PO; +Sulfameth./Trimethoprim Ds PO; +TRAM50TA2 PO
--- NOTE | 2019-09-20 17:08 | NUR ---
PT RICK MATHIS FROM [facility] FOR RE-EVAL ON NON-HEALING FOOT WOUND TO LEFT ANKLE. PT ARRIVED IN AFIB 100-130S. PT VERY FRUSTRATED SHE STATES "I HAVE NOTHING WRONG WITH ME, LET ME GO HOME." PT AAO X 4, HX AFIB AND TAKES ELIQUIS. PT DRESSED IN GOWN AND ATTACHED TO MONITOR. PER EMS, PT REFUSED IV EN ROUTE. LEFT LEG BANDAGES REMOVED, LARGE WOUND AND TWO SMALLER WOUNDS NOTED TO LEFT ANKLE. CALL LIGHT WITHIN REACH AND SIDERAIL X [address]
[2019-09-20] MEDS ORDERED: APIX2.5T PO (17:11)
--- NOTE | 2019-09-20 17:11 | NUR ---
MED REC COMPLETED.
[2019-09-20] MEDS ORDERED: SODIUM CHLORIDE FLUSH 10ML SYR IVF ONE (17:30)
[2019-09-20] MEDS ORDERED: VANCOMYCIN PER PHARMACY MC ONE (17:30)
[2019-09-20] MEDS ORDERED: VANCOMYCIN 1,300 MG in SODIUM CHLORIDE 0.9% 250 ML IV ONE (18:00)
--- NOTE | 2019-09-20 18:11 | NUR ---
PT MEDICATED PER ORDERS AFTER BOTH SETS OF BLOOD CULTURES ARE DRAWN.
[2019-09-20 18:18] LABS: MEAN CORPUSCULAR HEMOGLOBIN 24.3 pg (27.0-34.8); MEAN CORPUSCULAR HGB CONC 30.9 g/dL (32.4-35.8); MEAN CORPUSCULAR VOLUME 78.8 fL (80-100); MEAN PLATELET VOLUME 7.5 fL (7.4-10.4); PLATELET COUNT 562 x10^3/uL (130-400); RED BLOOD COUNT 3.18 x10^6/uL (3.82-5.3); RED CELL DISTRIBUTION WIDTH 27.5 % (9.6-15.2)
[2019-09-20 18:20] LABS: ALBUMIN 1.4 g/dL (3.4-5.0); ANION GAP 7 mmol/L (5-15); CALCIUM 8.1 mg/dL (8.5-10.1); CHLORIDE 108 mmol/L (98-107)
[2019-09-20 18:21] LABS: CREATININE 1.08 mg/dL (0.55-1.02)
[2019-09-20 18:46] LABS: MD YES
[2019-09-20 18:48] LABS: BAND#(MANUAL) 0.15 x10^3/uL; BANDS%(MANUAL) 1 % (0-7); EOS#(MANUAL) 0.15 x10^3/uL (0.0-0.4); EOS% (MANUAL) 1 % (1-7); LYMPHS% (MANUAL) 4 % (22-44); MONOS#(MANUAL) 1.19 x10^3/uL (0.3-2.7); MONOS% (MANUAL) 8 % (2-9); SEG#(MANUAL) 12.81 x10^3/uL (1.8-6.8); SEGS% (MANUAL) 86 % (42-75)
[2019-09-20 18:49] LABS: ANISOCYTOSIS 2+; HYPOCHROMIA 1+; MICROCYTOSIS 2+; POLYCHROMASIA 1+
[2019-09-20 18:50] LABS: OVALOCYTES 1+
[2019-09-20 18:51] LABS: <PLATELET ESTIMATE> INCREASED; <PLT MORPHOLOGY> NORMAL PLT MORPH
--- NOTE | 2019-09-20 19:55 | NUR ---
PT GIVEN TRAY, [facility] AT BEDSIDE FOR EXAM.
[2019-09-20] MEDS ORDERED: VANCOMYCIN PER PHARMACY MC PRN (20:00)
[2019-09-20] MEDS ORDERED: BISACODYL 10 MG SUPP PR PRN (20:00)
[2019-09-20] MEDS ORDERED: ONDANSETRON ODT 4 MG PO PRN (20:00)
[2019-09-20] MEDS ORDERED: POLYETHYLENE GLYCOL 17 GM PACKET PO PRN (20:00)
[2019-09-20] MEDS: FERROUS GLUCONATE 324 MG TABLET PO SCH (20:15)
[2019-09-20] MEDS: HEPARIN 5,000 UNITS/ML, 1ML SQ SCH (20:15)
[2019-09-20] MEDS ORDERED: PIPERACILLIN/TAZO/PMX 3.375GM 50 ML ONE (20:22)
[2019-09-20] MEDS: PIPERACILLIN/TAZO/PMX 3.375GM 50 ML IV SCH (20:29)
[2019-09-20] MEDS: SODIUM CHLORIDE 0.9% 1,000 ML IV SCH (20:29)
--- NOTE | 2019-09-20 20:32 | NUR ---
PT MEDICATED PER MAR.
--- NOTE | 2019-09-20 20:37 | NUR ---
REPORT GIVEN TO NAILA REYES. PT READY TO TRANSFER TO INPATIENT STATUS.
[2019-09-20] MEDS ORDERED: LACTOBACILLUS CHEW TABLET PO SCH (21:00)
[2019-09-20 21:25] VITALS: BP 131/68
[2019-09-20] MEDS ORDERED: TEMAZEPAM 15 MG CAPSULE PO PRN (22:00)
[2019-09-21] VITALS (10 sets, daily range): BP systolic 101–150; BP diastolic 47–72
[2019-09-21] MEDS ORDERED: PHARMACOKINETIC CONSULTATION MC ONE (00:30)
[2019-09-21] MEDS ORDERED: PHARMACOKINETIC MONITORING MC PRN (00:30)
[2019-09-21] MEDS: PIPERACILLIN/TAZO/PMX 3.375GM 50 ML IV SCH ×4 (02:35→20:19)
[2019-09-21 05:55] LABS: ALBUMIN 1.2 g/dL (3.4-5.0); ANION GAP 6 mmol/L (5-15); CALCIUM 7.6 mg/dL (8.5-10.1); CHLORIDE 111 mmol/L (98-107)
[2019-09-21 05:58] LABS: ALANINE AMINOTRANSFERASE 15 U/L (12-78); ALKALINE PHOSPHATASE 128 U/L (45-117); BILIRUBIN,TOTAL 0.3 mg/dL (0.2-1.0); CREATININE 0.88 mg/dL (0.55-1.02); TOTAL PROTEIN 4.9 g/dL (6.4-8.2)
[2019-09-21] MEDS: SODIUM CHLORIDE 0.9% 1,000 ML IV SCH ×2 (06:00→20:23)
[2019-09-21] MEDS: HEPARIN 5,000 UNITS/ML, 1ML SQ SCH ×3 (06:01→20:00)
[2019-09-21] MEDS: PANTOPROZOLE 40MG TABLET PO SCH ×2 (06:01→17:13)
[2019-09-21 06:06] LABS: MEAN CORPUSCULAR HEMOGLOBIN 24.5 pg (27.0-34.8); MEAN CORPUSCULAR HGB CONC 31.2 g/dL (32.4-35.8); MEAN CORPUSCULAR VOLUME 78.6 fL (80-100); MEAN PLATELET VOLUME 7.7 fL (7.4-10.4); PLATELET COUNT 459 x10^3/uL (130-400); RED BLOOD COUNT 2.86 x10^6/uL (3.82-5.3)
[2019-09-21 06:08] LABS: MD YES
[2019-09-21 06:09] LABS: RED CELL DISTRIBUTION WIDTH 27.1 % (9.6-15.2)
[2019-09-21 06:10] LABS: <PLATELET ESTIMATE> INCREASED; <PLT MORPHOLOGY> NORMAL PLT MORPH; ANISOCYTOSIS 2+; BASOS#(MANUAL) 0.11 x10^3/uL (0-0.1); BASOS% (MANUAL) 1 % (0-1); EOS#(MANUAL) 0.11 x10^3/uL (0.0-0.4); EOS% (MANUAL) 1 % (1-7); HYPOCHROMIA 1+; LYMPH#(MANUAL) 0.34 x10^3/uL (1-3.4); LYMPHS% (MANUAL) 3 % (22-44); MICROCYTOSIS 2+; MONOS#(MANUAL) 0.34 x10^3/uL (0.3-2.7); MONOS% (MANUAL) 3 % (2-9); OVALOCYTES 1+; POLYCHROMASIA 1+; SEG#(MANUAL) 10.49 x10^3/uL (1.8-6.8); SEGS% (MANUAL) 92 % (42-75)
[2019-09-21] MEDS: FERROUS GLUCONATE 324 MG TABLET PO SCH ×2 (08:27→17:13)
[2019-09-21] MEDS: LACTOBACILLUS CHEW TABLET PO SCH ×3 (08:27→20:24)
[2019-09-21] MEDS: LISINOPRIL 20 MG TABLET PO SCH (08:28)
[2019-09-21] MEDS: SENNA/DOCUSATE TABLET PO SCH (08:28)
[2019-09-21 09:14] LABS: HCT (SEDRATE) 22.5 % (34.6-47.8)
[2019-09-21 10:27] LABS: CLOSTRIDIUM DIFFICILE TOXIN POSITIVE (Negative)
[2019-09-21 10:34] LABS: CLOSTRIDIUM DIFFICILE ANTIGEN POSITIVE
[2019-09-21] MEDS ORDERED: GADOTERATE 7.5 MMOL/15 ML SYR ONE (11:57)
[2019-09-22] MEDS ORDERED: VANCOMYCIN 1,300 MG in SODIUM CHLORIDE 0.9% 250 ML IV SCH
[2019-09-22 02:16] VITALS: BP 129/77
[2019-09-22] MEDS: PIPERACILLIN/TAZO/PMX 3.375GM 50 ML IV SCH ×4 (02:36→20:38)
[2019-09-22] MEDS: SODIUM CHLORIDE 0.9% 1,000 ML IV SCH ×2 (02:36→13:41)
[2019-09-22] MEDS: HEPARIN 5,000 UNITS/ML, 1ML SQ SCH ×3 (04:00→20:00)
[2019-09-22] MEDS: PANTOPROZOLE 40MG TABLET PO SCH ×2 (06:19→16:36)
[2019-09-22 06:34] LABS: ALBUMIN 1.2 g/dL (3.4-5.0); ANION GAP 7 mmol/L (5-15); CALCIUM 7.3 mg/dL (8.5-10.1); CHLORIDE 113 mmol/L (98-107)
[2019-09-22 06:38] LABS: ALANINE AMINOTRANSFERASE 17 U/L (12-78); ALKALINE PHOSPHATASE 122 U/L (45-117); BILIRUBIN,TOTAL 0.3 mg/dL (0.2-1.0); CREATININE 0.87 mg/dL (0.55-1.02)
[2019-09-22 06:44] LABS: MEAN CORPUSCULAR HEMOGLOBIN 25.6 pg (27.0-34.8); MEAN CORPUSCULAR HGB CONC 31.5 g/dL (32.4-35.8); MEAN CORPUSCULAR VOLUME 81.1 fL (80-100); MEAN PLATELET VOLUME 7.6 fL (7.4-10.4); PLATELET COUNT 465 x10^3/uL (130-400); RED BLOOD COUNT 3.03 x10^6/uL (3.82-5.3); RED CELL DISTRIBUTION WIDTH 25.5 % (9.6-15.2)
[2019-09-22 07:23] LABS: MD YES
[2019-09-22 07:27] LABS: EOS#(MANUAL) 0.43 x10^3/uL (0.0-0.4); EOS% (MANUAL) 4 % (1-7); LYMPH#(MANUAL) 0.43 x10^3/uL (1-3.4); LYMPHS% (MANUAL) 4 % (22-44); MONOS#(MANUAL) 0.86 x10^3/uL (0.3-2.7); MONOS% (MANUAL) 8 % (2-9); SEG#(MANUAL) 9.07 x10^3/uL (1.8-6.8); SEGS% (MANUAL) 84 % (42-75)
[2019-09-22 07:28] LABS: <PLATELET ESTIMATE> INCREASED; <PLT MORPHOLOGY> NORMAL PLT MORPH; ACANTHOCYTES 1+; ANISOCYTOSIS 2+; HYPOCHROMIA 1+; MICROCYTOSIS 2+; OVALOCYTES 1+; POLYCHROMASIA 1+
[2019-09-22 08:10] VITALS: BP 148/79
[2019-09-22] MEDS: FERROUS GLUCONATE 324 MG TABLET PO SCH ×2 (08:21→16:36)
[2019-09-22] MEDS: LACTOBACILLUS CHEW TABLET PO SCH ×3 (08:21→20:38)
[2019-09-22] MEDS: MULTIVITAMIN 1 TABLET PO SCH (08:21)
[2019-09-22] MEDS: LISINOPRIL 20 MG TABLET PO SCH (08:21)
[2019-09-22] MEDS: VANCOMYCIN 50 MG/ML ORAL SUSP PO SCH ×3 (08:21→19:23)
[2019-09-22] MEDS: SENNA/DOCUSATE TABLET PO SCH (08:22)
[2019-09-22 14:00] VITALS: BP 134/76
[2019-09-22 20:05] VITALS: BP 146/88
[2019-09-22] MEDS: ACETAMINOPHEN 325 MG TABLET PO PRN (22:47)
[2019-09-23] MEDS: VANCOMYCIN 50 MG/ML ORAL SUSP PO SCH ×4 (01:32→19:25)
[2019-09-23] MEDS: PIPERACILLIN/TAZO/PMX 3.375GM 50 ML IV SCH ×4 (01:32→19:25)
[2019-09-23 01:40] VITALS: BP 128/85
[2019-09-23] MEDS: HEPARIN 5,000 UNITS/ML, 1ML SQ SCH ×3 (04:00→19:36)
[2019-09-23 05:13] LABS: MEAN CORPUSCULAR HEMOGLOBIN 25.1 pg (27.0-34.8); MEAN CORPUSCULAR HGB CONC 31.2 g/dL (32.4-35.8); MEAN CORPUSCULAR VOLUME 80.3 fL (80-100); MEAN PLATELET VOLUME 7.5 fL (7.4-10.4); PLATELET COUNT 520 x10^3/uL (130-400); RED BLOOD COUNT 3.18 x10^6/uL (3.82-5.3); RED CELL DISTRIBUTION WIDTH 26.1 % (9.6-15.2)
[2019-09-23 05:17] LABS: ANION GAP 7 mmol/L (5-15); CALCIUM 7.1 mg/dL (8.5-10.1); CHLORIDE 118 mmol/L (98-107); CREATININE 0.79 mg/dL (0.55-1.02)
[2019-09-23 05:45] LABS: MD YES
[2019-09-23 05:46] LABS: BAND#(MANUAL) 0.08 x10^3/uL; BANDS%(MANUAL) 1 % (0-7); BASOS#(MANUAL) 0.08 x10^3/uL (0-0.1); BASOS% (MANUAL) 1 % (0-1); EOS#(MANUAL) 0.41 x10^3/uL (0.0-0.4); EOS% (MANUAL) 5 % (1-7); LYMPH#(MANUAL) 0.32 x10^3/uL (1-3.4); LYMPHS% (MANUAL) 4 % (22-44); NRBC % (MANUAL) 1 % (0-1); SEG#(MANUAL) 7.21 x10^3/uL (1.8-6.8); SEGS% (MANUAL) 89 % (42-75)
[2019-09-23 05:47] LABS: ANISOCYTOSIS 2+; HYPOCHROMIA 1+; MICROCYTOSIS 2+; OVALOCYTES 1+; POLYCHROMASIA 1+
[2019-09-23 05:48] LABS: <PLATELET ESTIMATE> INCREASED; <PLT MORPHOLOGY> NORMAL PLT MORPH; ACANTHOCYTES 1+
[2019-09-23 05:49] LABS: SCHISTOCYTES 1+
[2019-09-23] MEDS: PANTOPROZOLE 40MG TABLET PO SCH (06:18)
[2019-09-23 06:57] VITALS: BP 157/91
[2019-09-23] MEDS: SENNA/DOCUSATE TABLET PO SCH (07:48)
[2019-09-23] MEDS: LISINOPRIL 20 MG TABLET PO SCH (07:48)
[2019-09-23] MEDS: FERROUS GLUCONATE 324 MG TABLET PO SCH ×2 (07:48→16:41)
[2019-09-23] MEDS: LACTOBACILLUS CHEW TABLET PO SCH ×3 (07:48→19:26)
[2019-09-23] MEDS: MULTIVITAMIN 1 TABLET PO SCH (07:48)
[2019-09-23 12:40] VITALS: BP 155/83
[2019-09-23] MEDS: VANCOMYCIN 1,300 MG in SODIUM CHLORIDE 0.9% 250 ML IV SCH (15:40)
[2019-09-23 20:19] VITALS: BP 127/69
[2019-09-24] MEDS: PIPERACILLIN/TAZO/PMX 3.375GM 50 ML IV SCH ×2 (01:33→07:41)
[2019-09-24] MEDS: VANCOMYCIN 50 MG/ML ORAL SUSP PO SCH ×4 (01:33→20:39)
[2019-09-24 02:10] VITALS: BP 111/86
[2019-09-24] MEDS: HEPARIN 5,000 UNITS/ML, 1ML SQ SCH ×3 (03:39→20:00)
[2019-09-24 07:37] LABS: MEAN CORPUSCULAR HEMOGLOBIN 24.9 pg (27.0-34.8); MEAN CORPUSCULAR HGB CONC 30.6 g/dL (32.4-35.8); MEAN CORPUSCULAR VOLUME 81.4 fL (80-100); MEAN PLATELET VOLUME 7.3 fL (7.4-10.4); PLATELET COUNT 637 x10^3/uL (130-400); RED CELL DISTRIBUTION WIDTH 26.3 % (9.6-15.2)
[2019-09-24 07:40] LABS: CALCIUM 8.4 mg/dL (8.5-10.1); CREATININE 0.87 mg/dL (0.55-1.02)
[2019-09-24] MEDS: LACTOBACILLUS CHEW TABLET PO SCH ×3 (07:41→20:38)
[2019-09-24] MEDS: FERROUS GLUCONATE 324 MG TABLET PO SCH ×2 (07:41→17:27)
[2019-09-24] MEDS: SENNA/DOCUSATE TABLET PO SCH ×2 (07:41→09:00)
[2019-09-24] MEDS: MULTIVITAMIN 1 TABLET PO SCH (07:41)
[2019-09-24 07:49] LABS: ANION GAP 10 mmol/L (5-15); CHLORIDE 117 mmol/L (98-107)
[2019-09-24 07:59] VITALS: BP 147/78
[2019-09-24] MEDS ORDERED: POTASSIUM CHLORIDE 40 MEQ in SODIUM CHLORIDE 0.9% 500 ML IV ONE (08:30)
[2019-09-24] MEDS ORDERED: ONDANSETRON 2MG/ML, 2ML IVPush PRN (08:30)
[2019-09-24 08:33] LABS: MD YES
[2019-09-24 08:34] LABS: <PLATELET ESTIMATE> INCREASED; <PLT MORPHOLOGY> NORMAL PLT MORPH; ACANTHOCYTES 1+; ANISOCYTOSIS 2+; BAND#(MANUAL) 0.11 x10^3/uL; BANDS%(MANUAL) 1 % (0-7); EOS#(MANUAL) 0.34 x10^3/uL (0.0-0.4); EOS% (MANUAL) 3 % (1-7); HYPOCHROMIA 1+; LYMPH#(MANUAL) 0.45 x10^3/uL (1-3.4); LYMPHS% (MANUAL) 4 % (22-44); MICROCYTOSIS 2+; OVALOCYTES 1+; POLYCHROMASIA 1+; SCHISTOCYTES 1+; SEGS% (MANUAL) 92 % (42-75)
[2019-09-24] MEDS: LISINOPRIL 20 MG TABLET PO SCH (10:44)
[2019-09-24] MEDS: POTASSIUM CHLORIDE 20 MEQ TAB.ER.PRT PO SCH ×2 (10:45→17:27)
[2019-09-24 13:15] VITALS: BP 136/74
[2019-09-24] MEDS: SODIUM CHLORIDE 0.9% 1,000 ML IV SCH (15:06)
[2019-09-24] MEDS ORDERED: PIPERACILLIN/TAZO(ZOSYN) 2.25 GM in NS 50 ML IVPB SCH (15:30)
[2019-09-24] MEDS: VANCOMYCIN 1,300 MG in SODIUM CHLORIDE 0.9% 250 ML IV SCH (17:18)
[2019-09-24 19:34] VITALS: BP 148/82
[2019-09-24] MEDS: PIPERACILLIN/TAZO/PMX 2.25GM 50 ML IVPB SCH (19:49)
[2019-09-25 01:11] VITALS: BP 150/83
[2019-09-25] MEDS: VANCOMYCIN 50 MG/ML ORAL SUSP PO SCH ×4 (02:11→20:16)
[2019-09-25] MEDS: PIPERACILLIN/TAZO/PMX 2.25GM 50 ML IVPB SCH ×4 (02:11→20:16)
[2019-09-25] MEDS: HEPARIN 5,000 UNITS/ML, 1ML SQ SCH ×3 (03:37→20:00)
[2019-09-25 05:48] LABS: MEAN CORPUSCULAR HEMOGLOBIN 25.2 pg (27.0-34.8); MEAN CORPUSCULAR HGB CONC 30.8 g/dL (32.4-35.8); MEAN CORPUSCULAR VOLUME 81.8 fL (80-100); MEAN PLATELET VOLUME 7.4 fL (7.4-10.4); PLATELET COUNT 687 x10^3/uL (130-400); RED BLOOD COUNT 3.63 x10^6/uL (3.82-5.3); RED CELL DISTRIBUTION WIDTH 26.1 % (9.6-15.2)
[2019-09-25 05:54] LABS: ANION GAP 7 mmol/L (5-15); CALCIUM 7.6 mg/dL (8.5-10.1); CHLORIDE 118 mmol/L (98-107); CREATININE 0.92 mg/dL (0.55-1.02)
[2019-09-25 06:11] LABS: BASOPHILS # (AUTO) 0.04 x10^3/uL (0-0.1); BASOPHILS % (AUTO) 1 % (0-1); EOSINOPHILS # (AUTO) 0.18 x10^3/uL (0-0.4); EOSINOPHILS % (AUTO) 2 % (1-7); LYMPHOCYTES # (AUTO) 0.58 x10^3/uL (1-3.4); LYMPHOCYTES % (AUTO) 8 % (22-44); MD SCAN; MONOCYTES # (AUTO) 0.44 x10^3/uL (0.2-0.8); MONOCYTES % (AUTO) 6 % (2-9); NEUTROPHILS # (AUTO) 6.22 x10^3/uL (1.8-6.8); NEUTROPHILS % (AUTO) 83 % (42-75)
[2019-09-25 07:41] LABS: HCT (SEDRATE) 29.5 % (34.6-47.8)
[2019-09-25] MEDS: FERROUS GLUCONATE 324 MG TABLET PO SCH ×2 (07:46→17:11)
[2019-09-25] MEDS: POTASSIUM CHLORIDE 20 MEQ TAB.ER.PRT PO SCH ×2 (07:46→17:11)
[2019-09-25] MEDS: LISINOPRIL 20 MG TABLET PO SCH (07:46)
[2019-09-25] MEDS: LACTOBACILLUS CHEW TABLET PO SCH ×3 (07:46→20:16)
[2019-09-25] MEDS: MULTIVITAMIN 1 TABLET PO SCH (07:46)
[2019-09-25] MEDS: SENNA/DOCUSATE TABLET PO SCH (07:46)
[2019-09-25] MEDS: SODIUM CHLORIDE 0.9% 1,000 ML IV SCH (07:47)
[2019-09-25 08:02] VITALS: BP 145/86
[2019-09-25 13:34] VITALS: BP 164/81
[2019-09-25] MEDS: VANCOMYCIN 1,300 MG in SODIUM CHLORIDE 0.9% 250 ML IV SCH (17:11)
[2019-09-25 19:23] VITALS: BP 161/76
[2019-09-26] MEDS: PIPERACILLIN/TAZO/PMX 2.25GM 50 ML IVPB SCH ×4 (02:05→20:42)
[2019-09-26 02:24] VITALS: BP 164/66
[2019-09-26] MEDS: VANCOMYCIN 50 MG/ML ORAL SUSP PO SCH ×4 (02:40→22:13)
[2019-09-26] MEDS: HEPARIN 5,000 UNITS/ML, 1ML SQ SCH ×3 (03:04→20:00)
[2019-09-26] MEDS: SODIUM CHLORIDE 0.9% 1,000 ML IV SCH (03:04)
[2019-09-26 06:56] VITALS: BP 144/88
[2019-09-26] MEDS: LISINOPRIL 20 MG TABLET PO SCH (08:48)
[2019-09-26] MEDS: MULTIVITAMIN 1 TABLET PO SCH (08:49)
[2019-09-26] MEDS: FERROUS GLUCONATE 324 MG TABLET PO SCH ×2 (08:49→17:00)
[2019-09-26] MEDS: LACTOBACILLUS CHEW TABLET PO SCH (08:49)
[2019-09-26] MEDS: SENNA/DOCUSATE TABLET PO SCH (09:00)
[2019-09-26 09:18] LABS: ANION GAP 8 mmol/L (5-15); CALCIUM 7.9 mg/dL (8.5-10.1); CHLORIDE 118 mmol/L (98-107); CREATININE 0.83 mg/dL (0.55-1.02)
[2019-09-26 09:55] LABS: MEAN CORPUSCULAR HEMOGLOBIN 25.3 pg (27.0-34.8); MEAN CORPUSCULAR HGB CONC 30.9 g/dL (32.4-35.8); PLATELET COUNT 665 x10^3/uL (130-400); RED BLOOD COUNT 3.74 x10^6/uL (3.82-5.3); RED CELL DISTRIBUTION WIDTH 26.7 % (9.6-15.2)
[2019-09-26 10:23] LABS: BASOPHILS # (AUTO) 0.04 x10^3/uL (0-0.1); BASOPHILS % (AUTO) 1 % (0-1); EOSINOPHILS # (AUTO) 0.13 x10^3/uL (0-0.4); EOSINOPHILS % (AUTO) 2 % (1-7); LYMPHOCYTES # (AUTO) 0.58 x10^3/uL (1-3.4); LYMPHOCYTES % (AUTO) 8 % (22-44); MD SCAN; MONOCYTES # (AUTO) 0.39 x10^3/uL (0.2-0.8); MONOCYTES % (AUTO) 5 % (2-9); NEUTROPHILS # (AUTO) 6.62 x10^3/uL (1.8-6.8); NEUTROPHILS % (AUTO) 85 % (42-75)
[2019-09-26] MEDS: METRONIDAZOLE PMX 500MG/100ML 100 ML IV SCH ×3 (10:35→21:40)
[2019-09-26 12:22] VITALS: BP 155/74
[2019-09-26] MEDS ORDERED: FENTANYL PF 100 MCG/2ML ONE ×3 (12:33→15:10)
[2019-09-26] MEDS ORDERED: FENTANYL PF 100 MCG/2ML IV PRN (13:30)
[2019-09-26] MEDS ORDERED: ALBUTEROL/IPRATROPIUM 2.5MG/0.5MG, 3 ML NPPB PRN (13:30)
[2019-09-26] MEDS ORDERED: PROMETHAZINE 25 MG/ML, 1ML IV PRN (13:30)
[2019-09-26] MEDS ORDERED: OXYcodone 5 MG/5 ML ORAL.SOL UDC PO PRN (13:30)
[2019-09-26] MEDS ORDERED: ACETAMINOPHEN 325 MG TABLET PO PRN (13:30)
[2019-09-26] MEDS ORDERED: METOPROLOL 1 MG/ML, 5ML IV PRN (13:30)
[2019-09-26] MEDS ORDERED: MIDAZOLAM 1 MG/ML, 2ML IV PRN (13:30)
[2019-09-26] MEDS ORDERED: hydrALAzine 20 MG/ML, 1ML IV PRN (13:30)
[2019-09-26] MEDS ORDERED: MEPERIDINE/PF 25MG/ML,1ML IVPush PRN (13:30)
[2019-09-26] MEDS ORDERED: PHENYLEPHRINE 10 MG/ML ONE (13:35)
[2019-09-26] MEDS ORDERED: DEXAMETHASONE 4 MG/ML, 1ML ONE (14:10)
[2019-09-26] MEDS ORDERED: ONDANSETRON 2MG/ML, 2ML ONE (14:10)
[2019-09-26] MEDS ORDERED: SUCCINYLCHOLINE 20 MG/ML, 10ML ONE (14:10)
[2019-09-26] MEDS ORDERED: PROPOFOL 10 MG/ML, 20ML ONE (14:10)
[2019-09-26] MEDS ORDERED: HYDROmorphone 1 MG/ML, 1ML INJ ONE (15:10)
[2019-09-26] MEDS: HYDROmorphone 2 MG/ML, 1ML IVPush PRN ×4 (15:37→20:46)
[2019-09-26] MEDS: VANCOMYCIN 1,300 MG in SODIUM CHLORIDE 0.9% 250 ML IV SCH (17:14)
[2019-09-26 19:41] VITALS: BP 147/68
[2019-09-27] MEDS: PIPERACILLIN/TAZO/PMX 2.25GM 50 ML IVPB SCH ×4 (01:55→20:37)
[2019-09-27 02:42] VITALS: BP 119/64
[2019-09-27] MEDS: HEPARIN 5,000 UNITS/ML, 1ML SQ SCH ×3 (02:48→20:00)
[2019-09-27] MEDS: METRONIDAZOLE PMX 500MG/100ML 100 ML IV SCH ×4 (02:48→21:22)
[2019-09-27] MEDS: VANCOMYCIN 50 MG/ML ORAL SUSP PO SCH ×4 (05:10→22:48)
[2019-09-27] MEDS: SODIUM CHLORIDE 0.9% 1,000 ML IV SCH ×2 (05:12→22:00)
[2019-09-27 05:21] LABS: ANION GAP 6 mmol/L (5-15); CALCIUM 7.3 mg/dL (8.5-10.1); CHLORIDE 117 mmol/L (98-107); CREATININE 0.78 mg/dL (0.55-1.02)
[2019-09-27 05:26] LABS: MEAN CORPUSCULAR HEMOGLOBIN 25.5 pg (27.0-34.8); MEAN CORPUSCULAR HGB CONC 31.3 g/dL (32.4-35.8); MEAN CORPUSCULAR VOLUME 81.6 fL (80-100); MEAN PLATELET VOLUME 7.2 fL (7.4-10.4); PLATELET COUNT 600 x10^3/uL (130-400); RED BLOOD COUNT 3.28 x10^6/uL (3.82-5.3); RED CELL DISTRIBUTION WIDTH 26.4 % (9.6-15.2)
[2019-09-27 06:00] LABS: BASOPHILS % (AUTO) 0 % (0-1); EOSINOPHILS % (AUTO) 0 % (1-7); LYMPHOCYTES % (AUTO) 6 % (22-44); MONOCYTES # (AUTO) 0.58 x10^3/uL (0.2-0.8); MONOCYTES % (AUTO) 6 % (2-9); NEUTROPHILS # (AUTO) 8.52 x10^3/uL (1.8-6.8); NEUTROPHILS % (AUTO) 88 % (42-75)
[2019-09-27 06:05] LABS: MD SCAN
[2019-09-27 07:44] VITALS: BP 128/66
[2019-09-27] MEDS: FERROUS GLUCONATE 324 MG TABLET PO SCH ×2 (08:33→17:19)
[2019-09-27] MEDS: LISINOPRIL 20 MG TABLET PO SCH (08:33)
[2019-09-27] MEDS: MULTIVITAMIN 1 TABLET PO SCH (08:33)
[2019-09-27] MEDS: SENNA/DOCUSATE TABLET PO SCH (09:00)
[2019-09-27 13:15] VITALS: BP 135/72
[2019-09-27] MEDS: VANCOMYCIN 1,300 MG in SODIUM CHLORIDE 0.9% 250 ML IV SCH (18:32)
[2019-09-27 19:03] VITALS: BP 104/54
[2019-09-28] MEDS: PIPERACILLIN/TAZO/PMX 2.25GM 50 ML IVPB SCH ×4 (02:34→21:13)
[2019-09-28 02:36] VITALS: BP 135/66
[2019-09-28] MEDS: METRONIDAZOLE PMX 500MG/100ML 100 ML IV SCH ×4 (03:50→22:15)
[2019-09-28] MEDS: HEPARIN 5,000 UNITS/ML, 1ML SQ SCH ×3 (03:53→20:00)
[2019-09-28 05:26] LABS: ALBUMIN 1.4 g/dL (3.4-5.0); ANION GAP 10 mmol/L (5-15); CALCIUM 7.4 mg/dL (8.5-10.1); CHLORIDE 115 mmol/L (98-107)
[2019-09-28 05:29] LABS: CREATININE 0.89 mg/dL (0.55-1.02)
[2019-09-28 05:30] LABS: ALANINE AMINOTRANSFERASE 26 U/L (12-78); ALKALINE PHOSPHATASE 98 U/L (45-117); BILIRUBIN,TOTAL 0.2 mg/dL (0.2-1.0)
[2019-09-28] MEDS: VANCOMYCIN 50 MG/ML ORAL SUSP PO SCH ×4 (05:36→23:30)
[2019-09-28 05:40] LABS: MEAN CORPUSCULAR HEMOGLOBIN 25.6 pg (27.0-34.8); MEAN CORPUSCULAR HGB CONC 31.3 g/dL (32.4-35.8); MEAN PLATELET VOLUME 7.3 fL (7.4-10.4); PLATELET COUNT 611 x10^3/uL (130-400); RED BLOOD COUNT 3.35 x10^6/uL (3.82-5.3); RED CELL DISTRIBUTION WIDTH 27.4 % (9.6-15.2)
[2019-09-28 06:31] LABS: MD YES
[2019-09-28 06:34] LABS: BAND#(MANUAL) 0.17 x10^3/uL; BANDS%(MANUAL) 2 % (0-7); BASOS#(MANUAL) 0.08 x10^3/uL (0-0.1); BASOS% (MANUAL) 1 % (0-1); EOS#(MANUAL) 0.17 x10^3/uL (0.0-0.4); EOS% (MANUAL) 2 % (1-7); LYMPH#(MANUAL) 0.42 x10^3/uL (1-3.4); LYMPHS% (MANUAL) 5 % (22-44); MONOS#(MANUAL) 0.58 x10^3/uL (0.3-2.7); MONOS% (MANUAL) 7 % (2-9); SEG#(MANUAL) 6.89 x10^3/uL (1.8-6.8); SEGS% (MANUAL) 83 % (42-75)
[2019-09-28 06:42] LABS: ANISOCYTOSIS 2+; MICROCYTOSIS 1+
[2019-09-28 06:43] LABS: ECHINOCYTES 1+; OVALOCYTES 1+
[2019-09-28 06:44] LABS: SCHISTOCYTES 1+; TARGET CELLS 1+
[2019-09-28 06:45] LABS: <PLATELET ESTIMATE> INCREASED; <PLT MORPHOLOGY> NORMAL PLT MORPH; CRENATED 1+
[2019-09-28 06:46] LABS: HYPOCHROMIA 2+
[2019-09-28 06:50] VITALS: BP 144/78
[2019-09-28] MEDS: MULTIVITAMIN 1 TABLET PO SCH (07:58)
[2019-09-28] MEDS: FERROUS GLUCONATE 324 MG TABLET PO SCH ×2 (07:58→17:12)
[2019-09-28] MEDS: LISINOPRIL 20 MG TABLET PO SCH (07:58)
[2019-09-28] MEDS: LACTATED RINGERS 1,000 ML IV SCH ×2 (09:23→23:31)
[2019-09-28 14:20] VITALS: BP 131/67
[2019-09-28 21:33] VITALS: BP 129/73
[2019-09-29] MEDS: PIPERACILLIN/TAZO/PMX 2.25GM 50 ML IVPB SCH (03:40)
[2019-09-29 03:42] VITALS: BP 126/69
[2019-09-29] MEDS: HEPARIN 5,000 UNITS/ML, 1ML SQ SCH ×3 (04:00→20:00)
[2019-09-29] MEDS: METRONIDAZOLE PMX 500MG/100ML 100 ML IV SCH ×4 (04:41→22:38)
[2019-09-29] MEDS: VANCOMYCIN 50 MG/ML ORAL SUSP PO SCH ×4 (04:41→22:38)
[2019-09-29 07:06] VITALS: BP 136/73
[2019-09-29] MEDS: FERROUS GLUCONATE 324 MG TABLET PO SCH ×2 (08:45→16:51)
[2019-09-29] MEDS: LISINOPRIL 20 MG TABLET PO SCH (08:45)
[2019-09-29] MEDS: MULTIVITAMIN 1 TABLET PO SCH (08:45)
[2019-09-29] MEDS ORDERED: CEFTRIAXONE PMX 1GM/50ML 50 ML IV SCH (09:00)
[2019-09-29] MEDS: LACTATED RINGERS 1,000 ML IV SCH (10:15)
[2019-09-29 14:20] VITALS: BP 141/80
[2019-09-29 18:53] VITALS: BP 129/67
[2019-09-30 03:20] VITALS: BP 139/83
[2019-09-30] MEDS: HEPARIN 5,000 UNITS/ML, 1ML SQ SCH ×3 (03:54→19:45)
[2019-09-30] MEDS: VANCOMYCIN 50 MG/ML ORAL SUSP PO SCH ×4 (05:33→23:19)
[2019-09-30] MEDS: METRONIDAZOLE PMX 500MG/100ML 100 ML IV SCH ×4 (05:34→23:19)
[2019-09-30 06:18] LABS: ALBUMIN 1.3 g/dL (3.4-5.0); ANION GAP 9 mmol/L (5-15); CALCIUM 7.3 mg/dL (8.5-10.1); CHLORIDE 113 mmol/L (98-107)
[2019-09-30 06:23] LABS: ALANINE AMINOTRANSFERASE 12 U/L (12-78); ALKALINE PHOSPHATASE 91 U/L (45-117); BILIRUBIN,TOTAL 0.2 mg/dL (0.2-1.0); CREATININE 0.69 mg/dL (0.55-1.02); TOTAL PROTEIN 4.9 g/dL (6.4-8.2)
[2019-09-30 06:41] LABS: MEAN CORPUSCULAR HGB CONC 31.7 g/dL (32.4-35.8); MEAN CORPUSCULAR VOLUME 81.9 fL (80-100); MEAN PLATELET VOLUME 7.4 fL (7.4-10.4); PLATELET COUNT 566 x10^3/uL (130-400); RED BLOOD COUNT 3.33 x10^6/uL (3.82-5.3); RED CELL DISTRIBUTION WIDTH 26.9 % (9.6-15.2)
[2019-09-30 07:44] LABS: MD YES
[2019-09-30 07:47] LABS: BAND#(MANUAL) 0.14 x10^3/uL; BANDS%(MANUAL) 2 % (0-7); BASOS#(MANUAL) 0.07 x10^3/uL (0-0.1); BASOS% (MANUAL) 1 % (0-1); EOS#(MANUAL) 0.07 x10^3/uL (0.0-0.4); EOS% (MANUAL) 1 % (1-7); LYMPH#(MANUAL) 0.56 x10^3/uL (1-3.4); LYMPHS% (MANUAL) 8 % (22-44); MONOS#(MANUAL) 0.42 x10^3/uL (0.3-2.7); MONOS% (MANUAL) 6 % (2-9); SEG#(MANUAL) 5.74 x10^3/uL (1.8-6.8); SEGS% (MANUAL) 82 % (42-75)
[2019-09-30 07:49] LABS: ANISOCYTOSIS 1+; HYPOCHROMIA 2+; OVALOCYTES 1+; TARGET CELLS 1+
[2019-09-30 07:50] LABS: <PLATELET ESTIMATE> INCREASED; <PLT MORPHOLOGY> NORMAL PLT MORPH; SCHISTOCYTES 1+
[2019-09-30 07:51] LABS: ECHINOCYTES 1+
[2019-09-30] MEDS ORDERED: POTASSIUM CHLORIDE 40 MEQ in SODIUM CHLORIDE 0.9% 500 ML IV ONE (08:00)
[2019-09-30 08:23] VITALS: BP 139/82
[2019-09-30] MEDS: FERROUS GLUCONATE 324 MG TABLET PO SCH ×2 (09:09→17:19)
[2019-09-30] MEDS: LACTATED RINGERS 1,000 ML IV SCH (09:10)
[2019-09-30] MEDS: MULTIVITAMIN 1 TABLET PO SCH (09:10)
[2019-09-30] MEDS: LISINOPRIL 20 MG TABLET PO SCH (09:10)
[2019-09-30] MEDS: POTASSIUM CHLORIDE 20 MEQ TAB.ER.PRT PO SCH ×2 (09:13→17:19)
[2019-09-30] MEDS ORDERED: VANCOMYCIN 1,300 MG in SODIUM CHLORIDE 0.9% 250 ML IV ONE (14:00)
[2019-09-30 14:10] VITALS: BP 140/76
[2019-09-30 19:30] VITALS: BP 141/80
[2019-10-01] MEDS: HEPARIN 5,000 UNITS/ML, 1ML SQ SCH ×3 (04:00→20:00)
[2019-10-01 04:53] VITALS: BP 150/83
[2019-10-01] MEDS: METRONIDAZOLE PMX 500MG/100ML 100 ML IV SCH ×4 (05:15→23:04)
[2019-10-01] MEDS: VANCOMYCIN 50 MG/ML ORAL SUSP PO SCH ×4 (05:16→23:04)
[2019-10-01] MEDS: LACTATED RINGERS 1,000 ML IV SCH ×2 (05:19→20:19)
[2019-10-01 06:15] LABS: ALBUMIN 1.4 g/dL (3.4-5.0); ANION GAP 7 mmol/L (5-15); CALCIUM 7.5 mg/dL (8.5-10.1); CHLORIDE 116 mmol/L (98-107)
[2019-10-01 06:20] LABS: ALANINE AMINOTRANSFERASE 11 U/L (12-78); ALKALINE PHOSPHATASE 91 U/L (45-117); BILIRUBIN,TOTAL 0.3 mg/dL (0.2-1.0); CREATININE 0.72 mg/dL (0.55-1.02); TOTAL PROTEIN 5.1 g/dL (6.4-8.2)
[2019-10-01 06:21] LABS: MEAN CORPUSCULAR HEMOGLOBIN 25.8 pg (27.0-34.8); MEAN CORPUSCULAR HGB CONC 31.1 g/dL (32.4-35.8); MEAN CORPUSCULAR VOLUME 82.9 fL (80-100); MEAN PLATELET VOLUME 7.4 fL (7.4-10.4); PLATELET COUNT 593 x10^3/uL (130-400); RED BLOOD COUNT 3.49 x10^6/uL (3.82-5.3); RED CELL DISTRIBUTION WIDTH 27.6 % (9.6-15.2)
[2019-10-01 06:42] LABS: MD YES
[2019-10-01 06:43] LABS: BASOS#(MANUAL) 0.17 x10^3/uL (0-0.1); BASOS% (MANUAL) 2 % (0-1); EOS#(MANUAL) 0.08 x10^3/uL (0.0-0.4); EOS% (MANUAL) 1 % (1-7); LYMPH#(MANUAL) 0.75 x10^3/uL (1-3.4); LYMPHS% (MANUAL) 9 % (22-44); MONOS#(MANUAL) 0.42 x10^3/uL (0.3-2.7); MONOS% (MANUAL) 5 % (2-9); SEG#(MANUAL) 6.89 x10^3/uL (1.8-6.8); SEGS% (MANUAL) 83 % (42-75)
[2019-10-01 06:44] LABS: ANISOCYTOSIS 1+; ECHINOCYTES 1+; HYPOCHROMIA 1+; OVALOCYTES 1+; SCHISTOCYTES 1+; TARGET CELLS 1+
[2019-10-01 06:45] LABS: <PLATELET ESTIMATE> INCREASED; <PLT MORPHOLOGY> NORMAL PLT MORPH
[2019-10-01 06:59] VITALS: BP 148/84
[2019-10-01] MEDS: MULTIVITAMIN 1 TABLET PO SCH (08:36)
[2019-10-01] MEDS: LISINOPRIL 20 MG TABLET PO SCH (08:36)
[2019-10-01] MEDS: FERROUS GLUCONATE 324 MG TABLET PO SCH ×2 (08:36→16:41)
[2019-10-01 15:46] VITALS: BP 134/77
[2019-10-01 20:32] VITALS: BP 137/81
[2019-10-02 02:09] VITALS: BP 132/83
[2019-10-02] MEDS: HEPARIN 5,000 UNITS/ML, 1ML SQ SCH ×4 (03:19→17:09)
[2019-10-02] MEDS: METRONIDAZOLE PMX 500MG/100ML 100 ML IV SCH (05:33)
[2019-10-02] MEDS: VANCOMYCIN 50 MG/ML ORAL SUSP PO SCH ×3 (05:33→17:09)
[2019-10-02 07:46] VITALS: BP 140/85
[2019-10-02] MEDS: MULTIVITAMIN 1 TABLET PO SCH (08:10)
[2019-10-02] MEDS: FERROUS GLUCONATE 324 MG TABLET PO SCH ×2 (08:10→17:08)
[2019-10-02] MEDS: LISINOPRIL 20 MG TABLET PO SCH (08:10)
[2019-10-02] MEDS: LACTATED RINGERS 1,000 ML IV SCH (11:26)
[2019-10-02 13:03] VITALS: BP 144/75
[2019-10-02 17:40] VITALS: BP 133/77
[2019-10-02 21:15] VITALS: BP 127/76
[2019-10-03] MEDS: VANCOMYCIN 50 MG/ML ORAL SUSP PO SCH ×5 (00:09→22:59)
[2019-10-03] MEDS: LACTATED RINGERS 1,000 ML IV SCH ×2 (00:10→11:15)
[2019-10-03 02:40] VITALS: BP 132/77
[2019-10-03] MEDS: HEPARIN 5,000 UNITS/ML, 1ML SQ SCH ×3 (03:41→20:00)
[2019-10-03 04:50] LABS: ALANINE AMINOTRANSFERASE 7 U/L (12-78); ALBUMIN 1.2 g/dL (3.4-5.0); ANION GAP 8 mmol/L (5-15); CALCIUM 7.5 mg/dL (8.5-10.1); CHLORIDE 116 mmol/L (98-107); CREATININE 0.63 mg/dL (0.55-1.02)
[2019-10-03 04:52] LABS: ALKALINE PHOSPHATASE 77 U/L (45-117); BILIRUBIN,TOTAL 0.5 mg/dL (0.2-1.0); TOTAL PROTEIN 4.8 g/dL (6.4-8.2)
[2019-10-03 06:35] VITALS: BP 137/77
[2019-10-03] MEDS: LISINOPRIL 20 MG TABLET PO SCH (08:21)
[2019-10-03] MEDS: MULTIVITAMIN 1 TABLET PO SCH (08:21)
[2019-10-03] MEDS: FERROUS GLUCONATE 324 MG TABLET PO SCH (08:21)
[2019-10-03 13:50] VITALS: BP 137/77
[2019-10-03] MEDS: POTASSIUM CHLORIDE 20 MEQ TAB.ER.PRT PO SCH (17:07)
[2019-10-03 19:57] VITALS: BP 143/83
[2019-10-04 02:58] VITALS: BP 130/77
[2019-10-04] MEDS: HEPARIN 5,000 UNITS/ML, 1ML SQ SCH ×3 (04:00→19:24)
[2019-10-04] MEDS: VANCOMYCIN 50 MG/ML ORAL SUSP PO SCH ×4 (05:45→22:19)
[2019-10-04] MEDS: LACTATED RINGERS 1,000 ML IV SCH ×2 (05:46→19:24)
[2019-10-04 06:06] LABS: ALBUMIN 1.3 g/dL (3.4-5.0); ANION GAP 7 mmol/L (5-15); CALCIUM 7.4 mg/dL (8.5-10.1); CHLORIDE 116 mmol/L (98-107)
[2019-10-04 06:10] LABS: ALANINE AMINOTRANSFERASE 7 U/L (12-78); ALKALINE PHOSPHATASE 81 U/L (45-117); BILIRUBIN,TOTAL 0.2 mg/dL (0.2-1.0); CREATININE 0.67 mg/dL (0.55-1.02); TOTAL PROTEIN 4.8 g/dL (6.4-8.2)
[2019-10-04 08:27] VITALS: BP 154/77
[2019-10-04] MEDS: POTASSIUM CHLORIDE 20 MEQ TAB.ER.PRT PO SCH ×2 (08:55→16:43)
[2019-10-04] MEDS: MULTIVITAMIN 1 TABLET PO SCH (08:56)
[2019-10-04] MEDS: LISINOPRIL 20 MG TABLET PO SCH (08:56)
[2019-10-04 11:56] VITALS: BP 166/91
[2019-10-04 19:55] VITALS: BP 142/68
[2019-10-05 01:35] VITALS: BP 150/76
[2019-10-05] MEDS: HEPARIN 5,000 UNITS/ML, 1ML SQ SCH ×3 (03:41→20:00)
[2019-10-05] MEDS: VANCOMYCIN 50 MG/ML ORAL SUSP PO SCH ×4 (05:30→22:21)
[2019-10-05] MEDS: LACTATED RINGERS 1,000 ML IV SCH ×2 (05:30→17:35)
[2019-10-05 06:50] VITALS: BP 171/86
[2019-10-05] MEDS: LISINOPRIL 20 MG TABLET PO SCH ×3 (07:48→20:41)
[2019-10-05] MEDS: MULTIVITAMIN 1 TABLET PO SCH (07:48)
[2019-10-05] MEDS: POTASSIUM CHLORIDE 20 MEQ TAB.ER.PRT PO SCH ×3 (07:48→17:35)
[2019-10-05] MEDS: SPIRONOLACTONE 25 MG TABLET PO SCH (11:49)
[2019-10-05 14:58] VITALS: BP 154/89
[2019-10-05] MEDS ORDERED: DIAZEPAM 5 MG TABLET PO PRN (18:30)
[2019-10-05 18:34] VITALS: BP 147/74
[2019-10-06 00:03] VITALS: BP 144/89
[2019-10-06] MEDS: LACTATED RINGERS 1,000 ML IV SCH (01:01)
[2019-10-06] MEDS: HEPARIN 5,000 UNITS/ML, 1ML SQ SCH ×3 (04:00→20:00)
[2019-10-06 04:58] LABS: ALBUMIN 1.3 g/dL (3.4-5.0); ANION GAP 6 mmol/L (5-15); CALCIUM 7.7 mg/dL (8.5-10.1); CHLORIDE 117 mmol/L (98-107)
[2019-10-06 05:03] LABS: ALANINE AMINOTRANSFERASE 17 U/L (12-78); ALKALINE PHOSPHATASE 87 U/L (45-117); BILIRUBIN,TOTAL 0.4 mg/dL (0.2-1.0); CREATININE 0.75 mg/dL (0.55-1.02); TOTAL PROTEIN 5.1 g/dL (6.4-8.2)
[2019-10-06] MEDS: VANCOMYCIN 50 MG/ML ORAL SUSP PO SCH ×2 (05:49→11:00)
[2019-10-06 06:48] VITALS: BP 150/84
[2019-10-06] MEDS: MULTIVITAMIN 1 TABLET PO SCH (08:56)
[2019-10-06] MEDS: LISINOPRIL 20 MG TABLET PO SCH ×2 (08:56→20:41)
[2019-10-06] MEDS: SPIRONOLACTONE 25 MG TABLET PO SCH (08:56)
[2019-10-06] MEDS: POTASSIUM CHLORIDE 20 MEQ TAB.ER.PRT PO SCH ×2 (08:57→17:00)
[2019-10-06 13:00] VITALS: BP 169/94
[2019-10-06 19:12] VITALS: BP 180/94
[2019-10-06 19:30] VITALS: BP 144/79
[2019-10-07 00:34] VITALS: BP 151/94
[2019-10-07] MEDS: LACTATED RINGERS 1,000 ML IV SCH ×2 (03:07→19:31)
[2019-10-07] MEDS: HEPARIN 5,000 UNITS/ML, 1ML SQ SCH ×3 (03:22→19:34)
[2019-10-07 04:14] VITALS: BP 151/85
[2019-10-07 06:04] LABS: CHLORIDE 115 mmol/L (98-107)
[2019-10-07 06:05] LABS: ALBUMIN 1.4 g/dL (3.4-5.0); ANION GAP 6 mmol/L (5-15); CALCIUM 7.8 mg/dL (8.5-10.1)
[2019-10-07 06:08] LABS: ALANINE AMINOTRANSFERASE 17 U/L (12-78); ALKALINE PHOSPHATASE 95 U/L (45-117); BILIRUBIN,TOTAL 0.4 mg/dL (0.2-1.0); CREATININE 0.72 mg/dL (0.55-1.02); TOTAL PROTEIN 5.3 g/dL (6.4-8.2)
[2019-10-07 06:42] VITALS: BP 159/90
[2019-10-07] MEDS: MULTIVITAMIN 1 TABLET PO SCH (09:47)
[2019-10-07] MEDS: AMLODIPINE 5 MG TABLET PO SCH ×2 (09:47→20:24)
[2019-10-07] MEDS: LISINOPRIL 20 MG TABLET PO SCH ×2 (09:48→20:24)
[2019-10-07] MEDS: POTASSIUM CHLORIDE 20 MEQ TAB.ER.PRT PO SCH ×2 (09:48→10:13)
[2019-10-07] MEDS: SPIRONOLACTONE 25 MG TABLET PO SCH (09:49)
[2019-10-07] MEDS: POTASSIUM CHLORIDE 40 MEQ in SODIUM CHLORIDE 0.9% 500 ML IV SCH (10:56)
[2019-10-07 12:04] VITALS: BP 134/85
[2019-10-07 18:30] VITALS: BP 131/80
[2019-10-08 01:31] VITALS: BP 134/67
[2019-10-08] MEDS: HEPARIN 5,000 UNITS/ML, 1ML SQ SCH (03:05)
[2019-10-08 05:55] LABS: ALANINE AMINOTRANSFERASE 12 U/L (12-78); ALBUMIN 1.2 g/dL (3.4-5.0); ANION GAP 4 mmol/L (5-15); CALCIUM 7.3 mg/dL (8.5-10.1); CHLORIDE 116 mmol/L (98-107); CREATININE 0.71 mg/dL (0.55-1.02)
[2019-10-08 05:58] LABS: ALKALINE PHOSPHATASE 92 U/L (45-117); BILIRUBIN,TOTAL 0.2 mg/dL (0.2-1.0); TOTAL PROTEIN 4.7 g/dL (6.4-8.2)
[2019-10-08 06:51] VITALS: BP 95/58
[2019-10-08] MEDS: MULTIVITAMIN 1 TABLET PO SCH (09:39)
[2019-10-08] MEDS: APIXABAN 5 MG TABLET PO SCH ×2 (09:39→21:27)
[2019-10-08] MEDS: LISINOPRIL 20 MG TABLET PO SCH ×2 (09:39→21:28)
[2019-10-08 12:07] VITALS: BP 96/57
[2019-10-08] MEDS: POTASSIUM CHLORIDE 40 MEQ in SODIUM CHLORIDE 0.9% 500 ML IV SCH (12:31)
[2019-10-08 19:17] VITALS: BP 96/58
[2019-10-08] MEDS: LACTATED RINGERS 1,000 ML IV SCH (22:02)
[2019-10-09 00:26] VITALS: BP 90/66
[2019-10-09 07:38] VITALS: BP 90/59
[2019-10-09] MEDS ORDERED: LISINOPRIL 5 MG TABLET PO SCH (09:00)
[2019-10-09] MEDS: MULTIVITAMIN 1 TABLET PO SCH (09:05)
[2019-10-09] MEDS: APIXABAN 5 MG TABLET PO SCH ×2 (09:05→21:13)
[2019-10-09] MEDS: POTASSIUM CHLORIDE 40 MEQ in SODIUM CHLORIDE 0.9% 500 ML IV SCH (09:06)
[2019-10-09 13:14] VITALS: BP 91/59
[2019-10-09] MEDS: LACTATED RINGERS 1,000 ML IV SCH (17:27)
[2019-10-09 19:00] VITALS: BP 92/65
[2019-10-10 02:40] VITALS: BP 95/61
[2019-10-10 06:39] VITALS: BP 100/68
[2019-10-10] MEDS: APIXABAN 5 MG TABLET PO SCH ×2 (09:33→21:06)
[2019-10-10] MEDS: MULTIVITAMIN 1 TABLET PO SCH (09:33)
[2019-10-10] MEDS: POTASSIUM CHLORIDE 40 MEQ in SODIUM CHLORIDE 0.9% 500 ML IV SCH (09:34)
[2019-10-10 13:30] VITALS: BP 126/75
[2019-10-10 18:31] VITALS: BP 155/85
[2019-10-10] MEDS: LACTATED RINGERS 1,000 ML IV SCH (21:06)
[2019-10-11 00:38] VITALS: BP 97/61
[2019-10-11 07:47] VITALS: BP 98/65
[2019-10-11] MEDS: APIXABAN 5 MG TABLET PO SCH ×2 (08:39→19:40)
[2019-10-11] MEDS: MULTIVITAMIN 1 TABLET PO SCH (08:39)
[2019-10-11 14:42] VITALS: BP 90/57
[2019-10-11 18:28] LABS: CLOSTRIDIUM DIFFICILE ANTIGEN NEGATIVE; CLOSTRIDIUM DIFFICILE TOXIN NEGATIVE (Negative)
[2019-10-11 18:32] VITALS: BP 109/79
[2019-10-11] MEDS: LACTATED RINGERS 1,000 ML IV SCH (23:14)
[2019-10-12 04:00] VITALS: BP 96/61
[2019-10-12 05:29] LABS: ALBUMIN 1.4 g/dL (3.4-5.0); ANION GAP 5 mmol/L (5-15); CALCIUM 7.8 mg/dL (8.5-10.1); CHLORIDE 112 mmol/L (98-107)
[2019-10-12 05:33] LABS: ALANINE AMINOTRANSFERASE 14 U/L (12-78); ALKALINE PHOSPHATASE 98 U/L (45-117); BILIRUBIN,TOTAL 0.3 mg/dL (0.2-1.0); CREATININE 0.65 mg/dL (0.55-1.02); TOTAL PROTEIN 5.1 g/dL (6.4-8.2)
[2019-10-12 06:40] VITALS: BP 92/61
[2019-10-12] MEDS: MULTIVITAMIN 1 TABLET PO SCH (09:11)
[2019-10-12] MEDS: APIXABAN 5 MG TABLET PO SCH ×2 (09:11→21:48)
[2019-10-12 11:56] VITALS: BP 107/69
[2019-10-12] MEDS ORDERED: LOPERAMIDE 2 MG CAPSULE PO PRN (15:00)
[2019-10-12] MEDS: LACTATED RINGERS 1,000 ML IV SCH (17:12)
[2019-10-12 20:13] VITALS: BP 99/62
[2019-10-13 01:13] VITALS: BP 95/64
[2019-10-13 06:41] VITALS: BP 110/72
[2019-10-13] MEDS: APIXABAN 5 MG TABLET PO SCH ×2 (08:00→21:30)
[2019-10-13] MEDS: MULTIVITAMIN 1 TABLET PO SCH (08:00)
[2019-10-13] MEDS: LOPERAMIDE 2 MG CAPSULE PO SCH ×3 (08:52→21:31)
[2019-10-13] MEDS: LACTATED RINGERS 1,000 ML IV SCH (11:57)
[2019-10-13 13:50] VITALS: BP 83/51
[2019-10-13] MEDS ORDERED: OMNIPAQUE 350 MG/ML, 75ML BOTTLE ONE (15:31)
[2019-10-13 19:31] VITALS: BP 109/72
[2019-10-14 01:52] VITALS: BP 98/49
[2019-10-14 06:37] VITALS: BP 106/72
[2019-10-14] MEDS: APIXABAN 5 MG TABLET PO SCH ×2 (08:04→21:11)
[2019-10-14] MEDS: LOPERAMIDE 2 MG CAPSULE PO SCH ×3 (08:04→21:11)
[2019-10-14] MEDS: MULTIVITAMIN 1 TABLET PO SCH (08:04)
[2019-10-14] MEDS: LACTATED RINGERS 1,000 ML IV SCH (08:05)
[2019-10-14 13:35] VITALS: BP 99/59
[2019-10-14] MEDS ORDERED: LIDOCAINE 1%, 10ML ONE (17:39)
[2019-10-14 18:37] VITALS: BP 76/35
[2019-10-14 19:29] LABS: CELLS COUNTED 141
[2019-10-15 01:27] VITALS: BP 109/73
[2019-10-15 05:22] LABS: CHLORIDE 112 mmol/L (98-107)
[2019-10-15 05:28] LABS: ALANINE AMINOTRANSFERASE 11 U/L (12-78); ALBUMIN 1.5 g/dL (3.4-5.0); ALKALINE PHOSPHATASE 93 U/L (45-117); ANION GAP 7 mmol/L (5-15); BILIRUBIN,TOTAL 0.2 mg/dL (0.2-1.0); CALCIUM 7.7 mg/dL (8.5-10.1); CREATININE 0.71 mg/dL (0.55-1.02); TOTAL PROTEIN 5.2 g/dL (6.4-8.2)
[2019-10-15 05:58] LABS: MEAN CORPUSCULAR HEMOGLOBIN 26.9 pg (27.0-34.8); MEAN CORPUSCULAR HGB CONC 31.3 g/dL (32.4-35.8); MEAN PLATELET VOLUME 8.6 fL (7.4-10.4); PLATELET COUNT 309 x10^3/uL (130-400); RED BLOOD COUNT 3.27 x10^6/uL (3.82-5.3); RED CELL DISTRIBUTION WIDTH 26.8 % (9.6-15.2)
[2019-10-15 06:34] VITALS: BP 104/70
[2019-10-15 06:36] LABS: MD YES
[2019-10-15 06:39] LABS: ANISOCYTOSIS 1+; BAND#(MANUAL) 0.32 x10^3/uL; BANDS%(MANUAL) 6 % (0-7); EOS#(MANUAL) 0.11 x10^3/uL (0.0-0.4); EOS% (MANUAL) 2 % (1-7); HYPOCHROMIA 1+; LYMPH#(MANUAL) 0.58 x10^3/uL (1-3.4); LYMPHS% (MANUAL) 11 % (22-44); MONOS#(MANUAL) 0.11 x10^3/uL (0.3-2.7); MONOS% (MANUAL) 2 % (2-9); OVALOCYTES 1+; SEG#(MANUAL) 4.19 x10^3/uL (1.8-6.8); SEGS% (MANUAL) 79 % (42-75)
[2019-10-15 06:41] LABS: TARGET CELLS 1+
[2019-10-15 06:43] LABS: <PLATELET ESTIMATE> ADEQUATE; <PLT MORPHOLOGY> NORMAL PLT MORPH; SCHISTOCYTES 1+
[2019-10-15] MEDS: LOPERAMIDE 2 MG CAPSULE PO SCH ×3 (09:31→21:19)
[2019-10-15] MEDS: APIXABAN 5 MG TABLET PO SCH ×2 (09:32→21:18)
[2019-10-15] MEDS: MULTIVITAMIN 1 TABLET PO SCH (09:32)
[2019-10-15 12:55] VITALS: BP 73/49
[2019-10-15 21:13] VITALS: BP 109/72
[2019-10-15] MEDS: ACETAMINOPHEN 325 MG TABLET PO PRN (21:18)
[2019-10-16 01:32] VITALS: BP 101/67
[2019-10-16 05:38] LABS: MEAN CORPUSCULAR HGB CONC 31.6 g/dL (32.4-35.8); MEAN CORPUSCULAR VOLUME 85.6 fL (80-100); MEAN PLATELET VOLUME 8.3 fL (7.4-10.4); PLATELET COUNT 315 x10^3/uL (130-400); RED BLOOD COUNT 3.38 x10^6/uL (3.82-5.3); RED CELL DISTRIBUTION WIDTH 27.1 % (9.6-15.2)
[2019-10-16 05:49] LABS: CHLORIDE 112 mmol/L (98-107)
[2019-10-16 05:59] LABS: ANION GAP 7 mmol/L (5-15); CALCIUM 7.7 mg/dL (8.5-10.1)
[2019-10-16 06:00] LABS: MD YES
[2019-10-16 06:07] LABS: ANISOCYTOSIS 1+; BAND#(MANUAL) 0.05 x10^3/uL; BANDS%(MANUAL) 1 % (0-7); BASOS#(MANUAL) 0.05 x10^3/uL (0-0.1); BASOS% (MANUAL) 1 % (0-1); LYMPH#(MANUAL) 0.55 x10^3/uL (1-3.4); LYMPHS% (MANUAL) 11 % (22-44); MONOS#(MANUAL) 0.55 x10^3/uL (0.3-2.7); MONOS% (MANUAL) 11 % (2-9); SEGS% (MANUAL) 76 % (42-75)
[2019-10-16 06:08] LABS: <PLATELET ESTIMATE> ADEQUATE; <PLT MORPHOLOGY> NORMAL PLT MORPH; HYPOCHROMIA 1+; OVALOCYTES 1+; SCHISTOCYTES 1+
[2019-10-16 07:34] VITALS: BP 93/67
[2019-10-16] MEDS: MULTIVITAMIN 1 TABLET PO SCH (09:18)
[2019-10-16] MEDS: APIXABAN 5 MG TABLET PO SCH ×2 (09:19→21:28)
[2019-10-16] MEDS: LOPERAMIDE 2 MG CAPSULE PO SCH ×3 (09:21→21:28)
[2019-10-16] MEDS ORDERED: POTASSIUM CHLORIDE 20 MEQ TAB.ER.PRT PO ONE (11:00)
[2019-10-16] MEDS ORDERED: MAGNESIUM SULFATE PMX 4GM/100M 100 ML IV ONE (11:00)
[2019-10-16] MEDS ORDERED: POTASSIUM CHLORIDE 20 MEQ PACKET ONE (11:32)
[2019-10-16 13:25] VITALS: BP 75/52
[2019-10-16] MEDS: CHOLESTYRAMINE LIGHT 4GM PACKET PO SCH (17:07)
[2019-10-16 19:30] VITALS: BP 87/60
[2019-10-17 03:14] VITALS: BP 111/75
[2019-10-17 04:47] LABS: ANION GAP 4 mmol/L (5-15); CALCIUM 7.6 mg/dL (8.5-10.1); CHLORIDE 113 mmol/L (98-107)
[2019-10-17 04:48] LABS: CREATININE 0.81 mg/dL (0.55-1.02)
[2019-10-17 07:09] VITALS: BP 89/60
[2019-10-17] MEDS: APIXABAN 5 MG TABLET PO SCH ×2 (08:46→20:35)
[2019-10-17] MEDS: LOPERAMIDE 2 MG CAPSULE PO SCH ×3 (08:46→20:35)
[2019-10-17] MEDS: MULTIVITAMIN 1 TABLET PO SCH (08:46)
[2019-10-17] MEDS: CHOLESTYRAMINE LIGHT 4GM PACKET PO SCH (10:36)
[2019-10-17 12:16] VITALS: BP 113/81
[2019-10-17 20:12] VITALS: BP 83/59
[2019-10-18 01:26] VITALS: BP 105/73
[2019-10-18 07:13] VITALS: BP 98/56
[2019-10-18] MEDS: LOPERAMIDE 2 MG CAPSULE PO SCH ×2 (08:55→15:51)
[2019-10-18] MEDS: MULTIVITAMIN 1 TABLET PO SCH (08:55)
[2019-10-18] MEDS: APIXABAN 5 MG TABLET PO SCH (08:55)
[2019-10-18] MEDS: CHOLESTYRAMINE LIGHT 4GM PACKET PO SCH (10:06)
[2019-10-18] MEDS ORDERED: LOPE2CAP PO (11:09)
[2019-10-18] MEDS ORDERED: APIX5TAB PO (11:09)
[2019-10-18] MEDS ORDERED: CHOL239. PO (11:09)
[2019-10-18] MEDS ORDERED: MULT1TAB60 PO (11:09)
[2019-10-18 13:27] VITALS: BP 84/60
== END 2019-10-18 16:00 | DRG 853 ==
LOC: ED 18:46 → EDIP 20:05 → 3N 21:00 → 4NE 09-27 13:00
PROVIDERS: ADMIT Internal Medicine; ATTEND Internal Medicine
PROC: 30233N1 Transfusion of Nonautologous Red Blood Cells into Peripheral Vein, Percutaneous Approach (ICD-10-PCS; 2019-09-21)
PROC: 0Y6J0Z1 Detachment at Left Lower Leg, High, Open Approach (ICD-10-PCS; principal; 2019-09-26 13:00)
PROC: 3E0H8GC Introduction of Other Therapeutic Substance into Lower GI, Via Natural or Artificial Opening Endoscopic (ICD-10-PCS; 2019-10-06)
PROC: 0W9B3ZZ Drainage of Left Pleural Cavity, Percutaneous Approach (ICD-10-PCS; 2019-10-14)
DX: A41.9 Sepsis, unspecified organism (principal); L89.624 Pressure ulcer of left heel, stage 4; L89.524 Pressure ulcer of left ankle, stage 4; E43 Unspecified severe protein-calorie malnutrition; A04.71 Enterocolitis due to Clostridium difficile, recurrent; I82.622 Acute embolism and thrombosis of deep veins of left upper extremity; J90 Pleural effusion, not elsewhere classified; J98.11 Atelectasis; L03.116 Cellulitis of left lower limb; M86.8X7 Other osteomyelitis, ankle and foot; Z88.5 Allergy status to narcotic agent; Z88.8 Allergy status to other drugs, medicaments and biological substances; K21.9 Gastro-esophageal reflux disease without esophagitis; I12.9 Hypertensive chronic kidney disease with stage 1 through stage 4 chronic kidney disease, or unspecified chronic kidney disease; N18.2 Chronic kidney disease, stage 2 (mild); D50.9 Iron deficiency anemia, unspecified; E87.6 Hypokalemia; L89.229 Pressure ulcer of left hip, unspecified stage; L97.529 Non-pressure chronic ulcer of other part of left foot with unspecified severity; N63.0 Unspecified lump in unspecified breast; Z66 Do not resuscitate; Z72.0 Tobacco use; Z85.038 Personal history of other malignant neoplasm of large intestine; Z85.830 Personal history of malignant neoplasm of bone; Z87.440 Personal history of urinary (tract) infections; Z90.710 Acquired absence of both cervix and uterus
CPT/HCPCS: 32555; 36415; 36430; 71045; 71260; 74018; 76642; 80048; 80053; 80202; 82040; 82962; 83605; 83615; 83735; 83986; 84100; 84157; 85025; 85651; 86140; 86850; 86900; 86923; 87040; 87070; 87077; 87147; 87186; 87205; 87324; 88307; 88311; 89051; 93005; 93306; 96365; 96366; G0378; J0696; J1100; J1170; J1644; J2405; J2543; J2704; J3010; J3370; J3480; Q9967; A9575; J0330; J2370; J3475; J7030; J7040; J7050; J7120; P9016